=== PATIENT | female | born 1970 | race African-American/Black ===

== ENCOUNTER 2016-12-07 02:58 | Emergency (ER) | payer OTHER ==
[~2016-12-07] VITALS: Ht 165.1 cm; Wt 115.7 kg
[~2016-12-07 02:58] MED LIST: BENZ100C PO; CIPR250T30 PO; CYCL10TA2 PO; GABA-586 PO; HYDR12.58 PO; NAPR250T2 PO; POLY17PO5 PO; SULF1TAB24 PO; TRAM-29 PO
[2016-12-07] MEDS ORDERED: IV NORMAL SALINE 1000ML BAG 1,000 ML IV ONE (03:30)
[2016-12-07] MEDS ORDERED: ONDANSETRON PF 4 MG/2 ML VIAL. IV PRN (03:30)
[2016-12-07 03:46] LABS: BASO # 0.1 x10^3/uL (0.0-0.2); BASO % 1 % (0-3); EOS % 1 % (0-3); HEMATOCRIT 38.8 % (36.0-47.0); HEMOGLOBIN 12.6 g/dL (12.0-15.5); LYMPH # 2.8 x10^3/uL (1.0-4.8); LYMPH % 38 % (24-48); MEAN CORPUSCULAR HEMOGLOBIN 26 pg (25-35); MEAN CORPUSCULAR HGB CONC 33 g/dL (31-37); MEAN CORPUSCULAR VOLUME 80 fL (79-100); MONO % 9 % (0-9); NEUT % 50 % (31-73); PLATELET COUNT 316 x10^3/uL (140-400); RED BLOOD COUNT 4.85 x10^6/uL (3.50-5.40); RED CELL DISTRIBUTION WIDTH 15.8 % (11.5-14.5); WHITE BLOOD COUNT 7.4 x10^3/uL (4.0-11.0)
[2016-12-07] MEDS ORDERED: LIDO:MAALOX:DONNATAL 1:1:1 15 ML SINGLE DOSE SWSW ONE (04:00)
[2016-12-07 04:01] LABS: CALCIUM 9.3 mg/dL (8.5-10.1); CREATININE 1.1 mg/dL (0.6-1.0); POTASSIUM 3.4 mmol/L (3.5-5.1)
[2016-12-07 04:07] LABS: ALBUMIN 3.3 g/dL (3.4-5.0); ALBUMIN/GLOBULIN RATIO 0.8 (1.0-1.7); TOTAL BILIRUBIN 0.2 mg/dL (0.2-1.0); TOTAL PROTEIN 7.7 g/dL (6.4-8.2)
[2016-12-07] MEDS ORDERED: ONDA4TAB10 SL (04:11)
--- NOTE | 2016-12-07 04:12 | PHYS DOC ---
Past Medical History Past Medical History: Arthritis, Asthma, CAD, Diabetes-Type II, Diverticulitis , Hypertension Additional Past Medical Histor: SLEEP APNEA, RA IN SPINE AND BILATERAL LOWER EXTREMITIES, Ulcers Past Surgical History: Tubal ligation Additional Past Surgical Histo: L KNEE Alcohol Use: Occasionally Drug Use: None Adult General Chief Complaint Chief Complaint: NAUSEA/VOMITING/DIARRHA HPI HPI 46-year-old female presenting to the emergency department today with nausea and vomiting with watery diarrhea over the past 3 days. She describes her emesis as stomach contents. She denies bilious or bloody emesis. She has mild abdominal pain that is general and without a focus. She denies fevers or chills. Her pain is moderate intermittent nonradiating and associated with nausea with vomiting. Review of systems is negative for chest pain shortness of breath fevers chills. All other review of systems is negative unless otherwise noted in history of present illness. Review of Systems Review of Systems SEE ABOVE. Current Medications Current Medications Current Medications Medications (Trade) Dose Ordered Sig/Felipa Start Time Stop Time Status Last Admin Dose Admin Acetaminophen/ Hydrocodone Bitart (Lortab 5/325) 1 tab 1X ONCE 12/07/16 05:00 12/07/16 05:01 DC Multi-Ingredient Mouthwash/Gargle (Gi Cocktail Single Dose) 15 ml 1X ONCE 12/07/16 04:00 12/07/16 04:01 DC 12/07/16 03:48 15 ML Ondansetron HCl (Zofran) 4 mg PRN Q30MIN PRN 12/07/16 03:30 12/07/16 03:48 4 MG Sodium Chloride (Iv Sodium Chloride 0.9% 1000ml Bag) 1,000 ml @ 1,000 mls/hr 1X ONCE 12/07/16 03:30 12/07/16 04:29 DC 12/07/16 03:48 1,000 MLS/HR Allergies Allergies Allergies Coded Allergies Type Severity Reaction Last Updated Verified No Known Drug Allergies 09/14/14 No Physical Exam Physical Exam Constitutional: Well developed, well nourished, no acute distress, non-toxic appearance. HENT: Normocephalic, atraumatic, bilateral external ears normal, oropharynx moist, no oral exudates, nose normal. [] Eyes: PERRLA, EOMI, conjunctiva normal, no discharge. [] Neck: Normal range of motion, no tenderness, supple, no stridor. [] Cardiovascular:Heart rate regular rhythm, no murmur Lungs & Thorax: Bilateral breath sounds clear to auscultation [] Abdomen: Soft nontender abdomen without rebound tenderness or guarding present. Negative McBurneys point. Negative Denson sign. No ecchymosis present. Skin: Warm, dry, no erythema, no rash. [] Back: No tenderness, no CVA tenderness. Extremities: No tenderness, no cyanosis, no clubbing, ROM intact, no edema. [] Neurologic: Alert and oriented X 3, normal motor function, normal sensory function, no focal deficits noted. Psychologic: Affect normal, judgement normal, mood normal. [] Current Patient Data Vital Signs Vital Signs Date Time Temp Pulse Resp B/P Pulse Ox O2 Delivery O2 Flow Rate FiO2 12/07/16 02:58 98.4 101 19 151/97 98 Room Air 98.4 Lab Values Laboratory Tests Test 12/07/16 03:35 12/07/16 04:25 White Blood Count 7.4x10^3/uL (4.0-11.0) Red Blood Count 4.85x10^6/uL (3.50-5.40) Hemoglobin 12.6g/dL (12.0-15.5) Hematocrit 38.8% (36.0-47.0) Mean Corpuscular Volume 80fL (79-100) Mean Corpuscular Hemoglobin 26pg (25-35) Mean Corpuscular Hemoglobin Concent 33g/dL (31-37) Red Cell Distribution Width 15.8% (11.5-14.5) H Platelet Count 316x10^3/uL (140-400) Neutrophils (%) (Auto) 50% (31-73) Lymphocytes (%) (Auto) 38% (24-48) Monocytes (%) (Auto) 9% (0-9) Eosinophils (%) (Auto) 1% (0-3) Basophils (%) (Auto) 1% (0-3) Neutrophils # (Auto) 3.7x10^3uL (1.8-7.7) Lymphocytes # (Auto) 2.8x10^3/uL (1.0-4.8) Monocytes # (Auto) 0.6x10^3/uL (0.0-1.1) Eosinophils # (Auto) 0.1x10^3/uL (0.0-0.7) Basophils # (Auto) 0.1x10^3/uL (0.0-0.2) POC Urine HCG, Qualitative Hcg negative (Negative) Sodium Level 145mmol/L (136-145) Potassium Level 3.4mmol/L (3.5-5.1) L Chloride Level 108mmol/L (98-107) H Carbon Dioxide Level 25mmol/L (21-32) Anion Gap 12 (6-14) Blood Urea Nitrogen 10mg/dL (7-20) Creatinine 1.1mg/dL (0.6-1.0) H Estimated GFR (Cockcroft-Gault) 65.0 BUN/Creatinine Ratio 9 (6-20) Glucose Level 115mg/dL (70-99) H Calcium Level 9.3mg/dL (8.5-10.1) Total Bilirubin 0.2mg/dL (0.2-1.0) Aspartate Amino Transferase (AST) 18U/L (15-37) Alanine Aminotransferase (ALT) 22U/L (14-59) Alkaline Phosphatase 75U/L (46-116) Total Protein 7.7g/dL (6.4-8.2) Albumin 3.3g/dL (3.4-5.0) L Albumin/Globulin Ratio 0.8 (1.0-1.7) L Lipase 106U/L (73-393) Urine Collection Type Unknown Urine Color Yellow Urine Clarity Cloudy Urine pH 5.5 Urine Specific [place] >=1.030 Urine Protein Negativemg/dL (NEG-TRACE) Urine Glucose (UA) Negativemg/dL (NEG) Urine Ketones (Stick) Negativemg/dL (NEG) Urine Blood Small (NEG) Urine Nitrite Negative (NEG) Urine Bilirubin Negative (NEG) Urine Urobilinogen Dipstick 0.2mg/dL (0.2 mg/dL) Urine Leukocyte Esterase Moderate (NEG) Urine RBC 6-10/HPF (0-2) Urine WBC 20-40/HPF (0-4) Urine Squamous Epithelial Cells Many/LPF Urine Bacteria Few/HPF (0-FEW) Urine Trichomonas Present Laboratory Tests 12/07/16 03:35 Laboratory Tests 3/18/17 03:35 EKG EKG [] Radiology/Procedures Radiology/Procedures [] Course & Med Decision Making Course & Med Decision Making Pertinent Labs and Imaging studies reviewed. (See chart for details) [] 46-year-old female presenting to the emergency department today with nausea and vomiting. Vital signs afebrile with mild tachycardia. Otherwise mildly hypertensive. Pertinent physical exam findings show a nontender nondistended abdomen. The patient was given IV fluids nausea and pain medication. Blood work was obtained which was unremarkable. On reexamination the patient's symptoms had improved significantly. She was feeling better. I examined the abdomen again and again was nontender. Nontender appendix and nontender gallbladder. Patient was subsequent discharged home with nausea and pain medication to follow -up with PCP over the next 2-3 days. Urinary tract infection present. Antibiotics given. Dragon Disclaimer Dragon Disclaimer This electronic medical record was generated, in whole or in part, using a voice recognition dictation system. Departure Departure Impression: Primary Impression: Nausea and vomiting Additional Impressions: Watery diarrhea Urinary tract infection Disposition: HOME, SELF-CARE Condition: STABLE Referrals: UNKNOWN PCP NAME (PCP) JES MCKEON MD Patient Instructions: Nausea and Vomiting Additional Instructions: Thank you for allowing us to participate in your care today. Followup with your primary care physician in 3 days if your symptoms do not improve. If you do not have a primary care provider you can ask for a list of our primary care providers. Return to the emergency department you have any new or concerning findings. This should be evaluated by the primary care physician and any necessary consulting services for continued management within a few days after discharge. Return to emergency room if you have any new or concerning symptoms including but not limited to fever, chills, nausea, vomiting, intractable pain, any new rashes, chest pain, shortness of air, uncontrolled bleeding, difficulty breathing, and/or vision loss. Scripts Nitrofurantoin Monohyd/M-Cryst (Macrobid 100 Mg Capsule)100 Mg Capsule1 Cap PO BID #10 CAP Prov:KG HERNANDEZ MD 12/07/16 Ondansetron (Zofran Odt)4 Mg Tab.rapdis1 Tab SL PRN Q8HRS PRN NAUSEA #6 TAB Prov:KG HERNANDEZ MD 12/07/16 Problem Qualifiers KG HERNANDEZ MD Dec 07, 2016 04:12
[2016-12-07 05:00] VITALS: BP 148/67
[2016-12-07 05:00] LABS: BILIRUBIN,URINE NEGATIVE (NEG); GLUCOSE,URINE NEGATIVE (NEG); NITRITE,URINE NEGATIVE (NEG); PH,URINE 5.5; PROTEIN,URINE NEGATIVE (NEG-TRACE); UROBILINOGEN,URINE 0.2 mg/dL (0.2 mg/dL)
[2016-12-07] MEDS ORDERED: HYDROCODONE/APAP 5/325MG TABLET. PO ONE (05:00)
[2016-12-07 05:09] LABS: BACTERIA,URINE FEW /HPF (0-FEW); SQUAMOUS EPITHELIAL CELL,UR MANY /LPF; WBC,URINE 20-40 /HPF (0-4)
[2016-12-07 05:10] LABS: TRICHOMONAS,URINE PRESENT
[2016-12-07] MEDS ORDERED: NITR100C62 PO (05:16)
== END 2016-12-07 05:36 | disposition home or self-care (01) ==
LOC: ER 02:58
DX: R11.2 Nausea with vomiting, unspecified (principal); R19.7 Diarrhea, unspecified; N39.0 Urinary tract infection, site not specified; E11.9 Type 2 diabetes mellitus without complications; I25.10 Atherosclerotic heart disease of native coronary artery without angina pectoris; I10 Essential (primary) hypertension; J45.909 Unspecified asthma, uncomplicated; R00.0 Tachycardia, unspecified; M19.90 Unspecified osteoarthritis, unspecified site; G47.30 Sleep apnea, unspecified
CPT/HCPCS: 36415; 80053; 81001; 81025; 83690; 85027; 87086; 96361; 96374; 99285; J2405; J7030

== ENCOUNTER 2017-01-06 17:44 | Emergency (ER) | payer OTHER ==
[~2017-01-06] VITALS: Ht 165.1 cm; Wt 120.2 kg
[~2017-01-06 17:44] MED LIST changes: +NITR100C62 PO; +ONDA4TAB10 SL
[2017-01-06 18:32] VITALS: BP 160/103
--- NOTE | 2017-01-06 19:18 | PHYS DOC ---
Past Medical History Past Medical History: Arthritis, Asthma, CAD, Diabetes-Type II, Diverticulitis , Hypertension Additional Past Medical Histor: SLEEP APNEA, RA IN SPINE AND BILATERAL LOWER EXTREMITIES, Ulcers Past Surgical History: Tubal ligation Additional Past Surgical Histo: L KNEE Additional Information: 7 cigarettes daily Alcohol Use: Occasionally Drug Use: None Adult General Chief Complaint Chief Complaint: KNEE INJURY HPI HPI Patient is a 46 year old female who presents with right knee pain starting yesterday. She states that her knee popped while she was walking down the steps. The pain became worse today after her son jumped on the knee. It began to pop again if she was walking down the steps to come to the emergency department tonight. Patient has a history of rheumatoid arthritis. She takes Percocet 7.5 mg and gabapentin at home for her pain. She is currently out of her Percocet. She sees a PCP at [facility]. Review of Systems Review of Systems Constitutional: Denies fever or chills. [] Eyes: Denies change in visual acuity, redness, or eye pain. [] HENT: Denies ear pain, nasal congestion or sore throat. [] Respiratory: Denies cough or shortness of breath. [] Cardiovascular: Denies chest pain, palpitations or edema. [] GI: Denies abdominal pain, nausea, vomiting, bloody stools or diarrhea. [] : Denies dysuria, hematuria or urinary frequency. [] Musculoskeletal: Denies back pain. Reports right knee pain. Integument: Denies rash or skin lesions. [] Neurologic: Denies headache, focal weakness or sensory changes. [] Endocrine: Denies polyuria or polydipsia. [] Psych: Denies anxiety or depression. [] All systems reviewed and negative unless otherwise stated in the HPI. Allergies Allergies Allergies Coded Allergies Type Severity Reaction Last Updated Verified No Known Drug Allergies 09/14/14 No Physical Exam Physical Exam Constitutional: Well developed, well nourished, no acute distress, non-toxic appearance. [] HENT: Normocephalic, atraumatic, oropharynx moist. [] Eyes: PERRLA, EOMI, conjunctiva normal, no discharge. [] Skin: Warm, dry, no erythema, no rash. [] Extremities: Medial right knee tenderness, ROM decreased due to pain, minimal edema. Distal pulses equal bilaterally. Light touch sensation intact distally. Neurologic: Alert and oriented X 3, normal motor function, normal sensory function, no focal deficits noted. [] Psychologic: Affect normal, judgement normal, mood normal. [] Current Patient Data Vital Signs Vital Signs Date Time Temp Pulse Resp B/P Pulse Ox O2 Delivery O2 Flow Rate FiO2 01/06/17 18:32 100.0 80 16 100 Room Air 100.0 EKG EKG [] Radiology/Procedures Radiology/Procedures 4 view X-ray of the right knee reviewed and interpreted by myself with Dr. Bhakta. There are no acute fractures or dislocations. There is arthritis of the knee, particularly in the medial compartment. Course & Med Decision Making Course & Med Decision Making Pertinent Labs and Imaging studies reviewed. (See chart for details) The patient is provided with an Jeromy wrap prior to discharge. She is given contact information for orthopedics for follow-up. Return precautions were discussed. She verbalizes understanding and agrees with plan. Dragon Disclaimer Dragon Disclaimer This electronic medical record was generated, in whole or in part, using a voice recognition dictation system. Departure Departure Impression: Primary Impression: Right knee pain Disposition: HOME, SELF-CARE Condition: STABLE Referrals: ANASTASIIA DEL CID II, MD Patient Instructions: Knee Pain, [id number], Knee Wraps (Elastic Bandage) and RICE Additional Instructions: There were no broken bones or dislocations seen on your x-ray. You do have arthritis in the knee. Please take the prescribed medications as instructed. Do not drive or operate heavy machinery while taking narcotic medications. Please follow-up with the orthopedic doctor listed below for your knee pain. Return to the emergency department if you have any new or concerning symptoms. Scripts Oxycodone/Apap 7.5-325 (Percocet 7.5-325 Mg Tablet)1 Each Tablet1 Tab PO PRN Q6HRS PRN PAIN #15 TAB Ref 0 Prov:JUNIOR JAIN 01/06/17 Naproxen (Naprosyn)500 Mg Tablet1 Tab PO BID #20 TAB Prov:JUNIOR JAIN 01/06/17 Problem Qualifiers Primary Impression: Right knee pain Chronicity: chronic Qualified Code: M25.561 - Pain in right knee JUNIOR JAIN Jan 06, 2017 19:18
[2017-01-06] MEDS ORDERED: NAPR500T PO (19:48)
[2017-01-06] MEDS ORDERED: OXYC-244 PO (19:48)
--- NOTE | 2017-01-07 09:51 | RAD ---
Right knee, 3 views, 01/06/2017: History: Knee popping, pain There is moderate spurring at the knee joint and at the patellofemoral articulation. There is subchondral sclerosis and cyst formation. No acute fracture or dislocation is identified. IMPRESSION: 1. Moderately severe hypertrophic degenerative change. 2. No acute bony abnormality is detected.
== END 2017-01-06 20:01 | disposition home or self-care (01) ==
LOC: ER 17:44
DX: M25.561 Pain in right knee (principal); E11.9 Type 2 diabetes mellitus without complications; G47.30 Sleep apnea, unspecified; I10 Essential (primary) hypertension; I25.10 Atherosclerotic heart disease of native coronary artery without angina pectoris; J45.909 Unspecified asthma, uncomplicated; M06.9 Rheumatoid arthritis, unspecified; F17.210 Nicotine dependence, cigarettes, uncomplicated; Z98.51 Tubal ligation status
CPT/HCPCS: 73562; 99284

== ENCOUNTER 2017-01-12 17:01 | Emergency (ER) | payer OTHER ==
[~2017-01-12] VITALS: Ht 165.1 cm; Wt 120.2 kg
[~2017-01-12 17:01] MED LIST changes: +NAPR500T PO; +OXYC-244 PO
[2017-01-12 17:54] VITALS: BP 197/104
[2017-01-12] MEDS ORDERED: HYDR-971 PO (18:03)
[2017-01-12] MEDS ORDERED: AMOX875T PO (18:03)
--- NOTE | 2017-01-12 18:03 | PHYS DOC ---
Past Medical History Past Medical History: Arthritis, Asthma, CAD, Diabetes-Type II, Diverticulitis , Hypertension Additional Past Medical Histor: SLEEP APNEA, RA IN SPINE AND BILATERAL LOWER EXTREMITIES, Ulcers Past Surgical History: Tubal ligation Additional Past Surgical Histo: L KNEE Alcohol Use: Occasionally Drug Use: None Adult General Chief Complaint Chief Complaint: TOOTH ACHE OR PAIN HPI HPI Patient is a 46 year old female with history of arthritis asthma hypertension diabetes type 2 who presents today with left lower gum dental pain that began 3 days ago. Patient denies any fever or trismus. She states she will look for dentist as soon as possible. Review of Systems Review of Systems Constitutional: Denies fever or chills [] Eyes: Denies change in visual acuity, redness, or eye pain [] HENT: Left lower gum dental pain Musculoskeletal: Denies back pain or joint pain [] Integument: Denies rash or skin lesions [] Neurologic: Denies headache, focal weakness or sensory changes [] Endocrine: Denies polyuria or polydipsia [] Allergies Allergies Allergies Coded Allergies Type Severity Reaction Last Updated Verified No Known Drug Allergies 09/14/14 No Physical Exam Physical Exam Constitutional: Well developed, well nourished, no acute distress, non-toxic appearance. [] HENT: Normocephalic, atraumatic, bilateral external ears normal, oropharynx moist, no oral exudates, nose normal. [] Tooth #20 and 21 with small amount of dental caries. No gum redness. Skin: Warm, dry, no erythema, no rash. [] Back: No tenderness, no CVA tenderness. [] Extremities: No tenderness, no cyanosis, no clubbing, ROM intact, no edema. [] Neurologic: Alert and oriented X 3, normal motor function, normal sensory function, no focal deficits noted. [] Psychologic: Affect normal, judgement normal, mood normal. [] EKG EKG [] Radiology/Procedures Radiology/Procedures [] Course & Med Decision Making Course & Med Decision Making Pertinent Labs and Imaging studies reviewed. (See chart for details) Patient has dental caries. Discharged with amoxicillin for 10 days. Discharged with hydrocodone as needed for pain. Follow-up with her dentist in the course of the next 7-14 days. Dragon Disclaimer Dragon Disclaimer This electronic medical record was generated, in whole or in part, using a voice recognition dictation system. Departure Departure Impression: Primary Impression: Pain, dental Additional Impression: Dental caries Disposition: 01 HOME, SELF-CARE Condition: STABLE Referrals: UNKNOWN PCP NAME (PCP) Follow-up with your dentist as soon as possible Patient Instructions: Dental Caries Additional Instructions: You were seen for dental caries and pain. Please take the prescribed antibiotics as ordered. Follow-up with your dentist in the next 7-14 days. Come back to the ED symptoms worsen. Scripts Amoxicillin 875 Mg Tablet1 Tab PO BID #20 TAB Prov:LUDA PADGETT APRN 01/12/17 Hydrocodone/Apap 5-325 (Hodgen 5-325 Tablet)1 Each Tablet1-2 Tab PO Q4-6HRS #12 TAB Must fill antibiotics before pain medicines. Prov:LUDA PADGETT APRN 01/12/17 Problem Qualifiers LUDA PADGETT APRN Jan 12, 2017 18:03
== END 2017-01-12 18:29 | disposition home or self-care (01) ==
LOC: ER 17:01
DX: K08.89 Other specified disorders of teeth and supporting structures (principal); K02.9 Dental caries, unspecified; M19.90 Unspecified osteoarthritis, unspecified site; J45.909 Unspecified asthma, uncomplicated; I25.10 Atherosclerotic heart disease of native coronary artery without angina pectoris; E11.9 Type 2 diabetes mellitus without complications; I10 Essential (primary) hypertension
CPT/HCPCS: 99283

== ENCOUNTER 2017-02-12 20:31 | Emergency (ER) | payer OTHER ==
[~2017-02-12] VITALS: Ht 165.1 cm; Wt 120.2 kg
[~2017-02-12 20:31] MED LIST changes: +AMOX875T PO; +HYDR-971 PO; +POLY17PO29 PO; -POLY17PO5 PO
[2017-02-12 20:51] VITALS: BP 183/116
--- NOTE | 2017-02-12 21:13 | PHYS DOC ---
Past Medical History Past Medical History: Arthritis, Asthma, CAD, Diabetes-Type II, Diverticulitis , Hypertension Additional Past Medical Histor: SLEEP APNEA, RA IN SPINE AND BILATERAL LOWER EXTREMITIES, Ulcers Past Surgical History: Tubal ligation Additional Past Surgical Histo: L KNEE Smoking: Cigarettes Alcohol Use: Occasionally Drug Use: None Adult General Chief Complaint Chief Complaint: FEVER HPI HPI Patient is a 46 year old female who presents with cough and cold symptoms since Friday. She has ear pain and fullness. Runny nose (clear) and non productive cough. Aches "all over." Vomiting but no diarrhea; no rash. No recent travel. She does smoke tobacco; has hypertension. Denies taking any OTC cold medications. Review of Systems Review of Systems Constitutional: Denies fever or chills Eyes: Denies change in visual acuity, redness, or eye pain HENT: see HPI Respiratory: Cough but Denies shortness of breath Cardiovascular: No chest pain GI: Denies abdominal pain, occasional nausea and vomiting, No bloody stools or diarrhea : Denies dysuria or hematuria Musculoskeletal: chronic back pain diffuse joint pain and aches Integument: Denies rash or skin lesions Neurologic: Some headache, No focal weakness or sensory changes Allergies Allergies Allergies Coded Allergies Type Severity Reaction Last Updated Verified No Known Drug Allergies 09/14/14 No Physical Exam Physical Exam Constitutional: Well developed, well nourished, no acute distress, non-toxic appearance. HENT: Normocephalic, atraumatic, bilateral external ears normal, TM dull but no erythema bilaterally. oropharynx moist, no oral exudates, nose normal. Eyes: PERRLA, EOMI, conjunctiva normal, no discharge. Neck: Normal range of motion, no tenderness, supple, no stridor. Cardiovascular:Heart rate regular rhythm, no murmur Lungs & Thorax: Bilateral breath sounds clear to auscultation Abdomen: Bowel sounds normal, soft, no tenderness, no masses, no pulsatile masses. Skin: Warm, dry, no erythema, no rash. Back: No tenderness, no CVA tenderness. Extremities: No tenderness, no cyanosis, no clubbing, ROM intact, no edema. Neurologic: Alert and oriented X 3, normal motor function, normal sensory function, no focal deficits noted. Psychologic: Affect normal, judgement normal, mood normal. Current Patient Data Vital Signs Vital Signs Date Time Temp Pulse Resp B/P (MAP) Pulse Ox O2 Delivery O2 Flow Rate FiO2 02/12/17 20:51 99.6 92 20 183/116 (138) 99 Room Air 99.6 EKG EKG [] Course & Med Decision Making Course & Med Decision Making Ddx: allergic rhinitis and sinusitis; viral syndrome; bronchitis Patient with non toxic presentation. KTRACS: reveals consistent multiple narcotic pain medications filled monthly. For January; 01/23/17 oxycodone (#15); Hydrocodone (#15); 02/05/17 Oxycodone 7.5 mg (#90). Will have her use OTC Coricidin HBP for cold symptoms; medrol dose antia and tessalon pearles. She does not meet findings for antibiotics at this time. If symptoms change or worsen she will need re-evaluation Dragon Disclaimer Dragon Disclaimer This electronic medical record was generated, in whole or in part, using a voice recognition dictation system. Departure Departure Impression: Primary Impression: Upper respiratory infection Additional Impression: Viral syndrome Disposition: 01 HOME, SELF-CARE Condition: GOOD Referrals: UNKNOWN PCP NAME (PCP) Patient Instructions: Acute Bronchitis, Hypertension, Viral Syndrome Scripts Benzonatate (TESSALON PERLE) 100 Mg Capsule 1 CAP PO TID, #21 CAP Prov: BARTOLO GONZALEZ MD 02/12/17 Methylprednisolone (MEDROL) 4 Mg Tab.ds.pk 1 PKG PO UD, #1 PKG Prov: BARTOLO GONZALEZ MD 02/12/17 Problem Qualifiers BARTOLO GONZALEZ MD February 12, 2017 21:13
[2017-02-12] MEDS ORDERED: METH4TAB2 PO (21:26)
[2017-02-12] MEDS ORDERED: BENZ100C PO (21:26)
== END 2017-02-12 22:04 | disposition home or self-care (01) ==
LOC: ER 20:31
DX: J06.9 Acute upper respiratory infection, unspecified (principal); B34.9 Viral infection, unspecified; J45.909 Unspecified asthma, uncomplicated; I25.10 Atherosclerotic heart disease of native coronary artery without angina pectoris; E11.9 Type 2 diabetes mellitus without complications; I10 Essential (primary) hypertension; G47.30 Sleep apnea, unspecified; F17.210 Nicotine dependence, cigarettes, uncomplicated; M06.89 Other specified rheumatoid arthritis, multiple sites
CPT/HCPCS: 99283

== ENCOUNTER 2017-12-09 17:41 | Emergency (ER) | payer OTHER ==
[2017-12-09 17:57] LABS: URINE HCG POC HCG NEGATIVE (Negative)
[2017-12-09 18:22] LABS: BILIRUBIN,URINE NEGATIVE (NEG); CLARITY,URINE CLEAR; COLOR,URINE YELLOW; GLUCOSE,URINE NEGATIVE (NEG); NITRITE,URINE NEGATIVE (NEG); PH,URINE 6.5; PROTEIN,URINE NEGATIVE (NEG-TRACE)
[2017-12-09] MEDS: IV NORMAL SALINE 1000ML BAG 1,000 ML IV (18:24)
[2017-12-09] MEDS: fentaNYL PF VIAL 100 MCG/2 ML VIAL IV ×4 (18:24→20:05)
[2017-12-09 18:25] LABS: ADD MAN DIFF? NO
[2017-12-09] MEDS: FAMOTIDINE 20 MG/2 ML VIAL IVP (18:25)
[2017-12-09] MEDS: ONDANSETRON PF 4 MG/2 ML VIAL. IV (18:25)
[2017-12-09 18:29] LABS: BASO # 0.1 x10^3/uL (0.0-0.2); BASO % 1 % (0-3); EOS # 0.1 x10^3/uL (0.0-0.7); EOS % 2 % (0-3); HEMATOCRIT 37.2 % (36.0-47.0); HEMOGLOBIN 12.4 g/dL (12.0-15.5); LYMPH % 45 % (24-48); MEAN CORPUSCULAR HEMOGLOBIN 27 pg (25-35); MEAN CORPUSCULAR HGB CONC 33 g/dL (31-37); MEAN CORPUSCULAR VOLUME 80 fL (79-100); MONO # 0.6 x10^3/uL (0.0-1.1); MONO % 9 % (0-9); NEUT # 2.9 x10^3uL (1.8-7.7); NEUT % 43 % (31-73); PLATELET COUNT 338 x10^3/uL (140-400); RED BLOOD COUNT 4.65 x10^6/uL (3.50-5.40); WHITE BLOOD COUNT 6.7 x10^3/uL (4.0-11.0)
[2017-12-09 18:37] LABS: BACTERIA,URINE MODERATE /HPF (0-FEW); RBC,URINE 0 /HPF (0-2); SQUAMOUS EPITHELIAL CELL,UR MOD /LPF; WBC,URINE RARE /HPF (0-4)
[2017-12-09] MEDS: IOHEXOL 300 MG/ML 100ML VIAL. IV (19:15)
[2017-12-09] MEDS ORDERED: CONTRAST GIVEN MC (19:15)
[2017-12-09 19:30] LABS: ANION GAP 10 (6-14); BLOOD UREA NITROGEN 12 mg/dL (7-20); BUN/CREATININE RATIO 13 (6-20); CALCIUM 8.5 mg/dL (8.5-10.1); CARBON DIOXIDE 24 mmol/L (21-32); CHLORIDE 105 mmol/L (98-107); CREATININE 0.9 mg/dL (0.6-1.0); GFR 81.6; GLUCOSE 95 mg/dL (70-99); POTASSIUM 4.5 mmol/L (3.5-5.1); SODIUM 139 mmol/L (136-145)
[2017-12-09 19:36] LABS: ALBUMIN 3.1 g/dL (3.4-5.0); ALBUMIN/GLOBULIN RATIO 0.7 (1.0-1.7); ALK PHOS 72 U/L (46-116); ALT (SGPT) 16 U/L (14-59); AST (SGOT) 14 U/L (15-37); LIPASE 119 U/L (73-393); TOTAL BILIRUBIN 0.1 mg/dL (0.2-1.0); TOTAL PROTEIN 7.4 g/dL (6.4-8.2)
== END 2017-12-09 21:37 | disposition home or self-care (01) ==
LOC: ER 17:41
DX: R10.84 Generalized abdominal pain (principal); M54.5 Low back pain; R50.9 Fever, unspecified; J45.909 Unspecified asthma, uncomplicated; I25.10 Atherosclerotic heart disease of native coronary artery without angina pectoris; I10 Essential (primary) hypertension; E11.9 Type 2 diabetes mellitus without complications; M06.9 Rheumatoid arthritis, unspecified; Z98.51 Tubal ligation status
CPT/HCPCS: 36415; 74177; 80053; 81001; 81025; 83690; 85025; 87086; 93005; 96361; 96374; 96375; 96376; 99285-25; J2405; J3010; J7030; Q9967; S0028

== ENCOUNTER 2018-06-11 22:51 | Emergency (ER) | payer OTHER ==
[2017-12-09 20:30] VITALS: BP 176/75
[~2018-06-11 22:51] MED LIST changes: +CIPR500T94 PO; +METH4TAB2 PO; +METR500T PO; +NAPR-683 PO; -NAPR250T2 PO; +NAPR250T6 PO; -NAPR500T PO; -OXYC-244 PO; +OXYC-327 PO; -TRAM-29 PO; +TRAM-48 PO
== END 2018-06-11 23:10 | disposition left against medical advice (07) ==
LOC: ER 22:51
DX: S99.912A Unspecified injury of left ankle, initial encounter (principal); Z53.21 Procedure and treatment not carried out due to patient leaving prior to being seen by health care provider; X58.XXXA Exposure to other specified factors, initial encounter; Y93.89 Activity, other specified; Y92.89 Other specified places as the place of occurrence of the external cause; Y99.8 Other external cause status

== ENCOUNTER 2018-09-19 20:26 | Emergency (ER) | payer OTHER ==
[~2018-09-19] VITALS: Ht 165.1 cm; Wt 120.2 kg
[~2018-09-19 20:26] MED LIST changes: -GABA-586 PO; +GABA300C18 PO; +HYDR-3164 PO; -HYDR-971 PO; -OXYC-327 PO; +OXYC1TAB19 PO
[2018-09-19 20:36] VITALS: BP 171/99
[2018-09-19] MEDS ORDERED: CYCL10TA2 PO (20:44)
[2018-09-19] MEDS ORDERED: OXYC1TAB19 PO (20:44)
--- NOTE | 2018-09-19 20:44 | PHYS DOC ---
Past Medical History Past Medical History: Arthritis, Asthma, CAD, Diabetes-Type II, Diverticulitis , Hypertension Additional Past Medical Histor: SLEEP APNEA, RA IN SPINE AND BILATERAL LOWER EXTREMITIES, Ulcers Past Surgical History: Tubal ligation Additional Past Surgical Histo: L KNEE Alcohol Use: Occasionally Drug Use: None Adult General Chief Complaint Chief Complaint: BACK PAIN - NO INJURY HPI HPI Patient is a 48 year old female with history of hypertension, diabetes type 2, asthma, arthritis, who presents today complaining of 10 out of 10 bilateral low back pain radiating to her right knee that is chronic in nature but got worse this morning, patient denies any known injury. Denies any loss of bowel bladder function. She states she normally gets oxycodone as needed for her pain but her PCP is out of town. Review of Systems Review of Systems Constitutional: Denies fever or chills [] GI: Denies abdominal pain, nausea, vomiting, bloody stools or diarrhea [] : Denies dysuria or hematuria [] Musculoskeletal: Reports exacerbation of chronic low back pain Integument: Denies rash or skin lesions [] Neurologic: Denies headache, focal weakness or sensory changes [] All other systems were reviewed and found to be within normal limits, except as documented in this note. Allergies Allergies Allergies Coded Allergies Type Severity Reaction Last Updated Verified No Known Drug Allergies 09/14/14 No Physical Exam Physical Exam Constitutional: Well developed, well nourished, no acute distress, non-toxic appearance. [] Abdomen: Bowel sounds normal, soft, no tenderness, no masses, no pulsatile masses. [] Skin: Warm, dry, no erythema, no rash. [] Back: Overweight patient. Diffuse paraspinal muscle tenderness bilateral lumbar spine, no midline tenderness, no CVA tenderness. [] Extremities: No tenderness, no cyanosis, no clubbing, ROM intact, no edema. [] Neurologic: Alert and oriented X 3, normal motor function, normal sensory function, no focal deficits noted. [] Psychologic: Affect normal, judgement normal, mood normal. [] EKG EKG [] Radiology/Procedures Radiology/Procedures [] Course & Med Decision Making Course & Med Decision Making Pertinent Labs and Imaging studies reviewed. (See chart for details) This is a 48-year-old female patient presented to the ED today with exacerbation of chronic low back pain, no known injury. Patient will be discharged with pain medicine. Follow-up with her PCP in the course of this coming week. Faviola Disclaimer Faviola Disclaimer This electronic medical record was generated, in whole or in part, using a voice recognition dictation system. Departure Departure Impression: Primary Impression: Back pain Additional Impression: Sciatica Disposition: 01 HOME, SELF-CARE Condition: STABLE Referrals: UNKNOWN PCP NAME (PCP) Follow-up with your doctor in the course of next week Patient Instructions: Back Pain, Adult, Sciatica, [id number] Additional Instructions: You were evaluated in the emergency room for exacerbation of chronic low back pain. Take the prescribed medications as ordered. Follow-up with your doctor in the course of next week. Scripts Cyclobenzaprine Hcl (CYCLOBENZAPRINE HCL) 10 Mg Tablet 1 TAB PO TID, #30 TAB Prov: LUDA PADGETT APRN 09/19/18 Oxycodone/Apap 7.5-325 (PERCOCET 7.5-325 MG TABLET ) 1 Each Tablet 1 TAB PO PRN Q6HRS PRN for PAIN, #14 TAB 0 Refills Prov: LUDA PADGETT APRN 09/19/18 Problem Qualifiers Primary Impression: Back pain Back pain location: low back pain Chronicity: chronic Back pain laterality : bilateral Sciatica presence: with sciatica Sciatica laterality: sciatica of right side Qualified Codes: M54.41 - Lumbago with sciatica, right side; G89.29 - Other chronic pain Additional Impression: Sciatica Laterality: right Qualified Codes: M54.31 - Sciatica, right side LUDA PADGETT APRN Sep 19, 2018 20:44
== END 2018-09-19 20:56 | disposition home or self-care (01) ==
LOC: ER 20:26
DX: M54.41 Lumbago with sciatica, right side (principal); M54.42 Lumbago with sciatica, left side; G89.29 Other chronic pain; I25.10 Atherosclerotic heart disease of native coronary artery without angina pectoris; J45.909 Unspecified asthma, uncomplicated; I10 Essential (primary) hypertension; E11.9 Type 2 diabetes mellitus without complications; Z98.51 Tubal ligation status
CPT/HCPCS: 99283

== ENCOUNTER 2018-10-04 16:03 | Emergency (ER) | payer MEDICAID ==
[~2018-10-04] VITALS: Ht 170.2 cm; Wt 120.2 kg
[2018-10-04 16:23] LABS: BILIRUBIN,URINE NEGATIVE (NEG); CLARITY,URINE CLEAR; COLOR,URINE YELLOW; NITRITE,URINE NEGATIVE (NEG); PH,URINE 5.5; PROTEIN,URINE NEGATIVE (NEG-TRACE); UROBILINOGEN,URINE 0.2 mg/dL (0.2 mg/dL)
[2018-10-04 16:35] LABS: BACTERIA,URINE MANY /HPF (0-FEW); RBC,URINE RARE /HPF (0-2); SQUAMOUS EPITHELIAL CELL,UR MANY /LPF; WBC,URINE OCC /HPF (0-4)
[2018-10-04] MEDS ORDERED: MORPHINE SULFATE 10 MG/ML VIAL. IV ONE (16:45)
[2018-10-04] MEDS ORDERED: KETOROLAC 30 MG/ML VIAL. IV ONE (16:45)
[2018-10-04 16:53] LABS: BASO % 1 % (0-3); EOS # 0.1 x10^3/uL (0.0-0.7); EOS % 2 % (0-3); HEMATOCRIT 39.1 % (36.0-47.0); HEMOGLOBIN 12.9 g/dL (12.0-15.5); LYMPH # 3.1 x10^3/uL (1.0-4.8); LYMPH % 47 % (24-48); MEAN CORPUSCULAR HEMOGLOBIN 26 pg (25-35); MEAN CORPUSCULAR HGB CONC 33 g/dL (31-37); MEAN CORPUSCULAR VOLUME 79 fL (79-100); MONO # 0.4 x10^3/uL (0.0-1.1); MONO % 6 % (0-9); NEUT # 2.9 x10^3uL (1.8-7.7); NEUT % 44 % (31-73); PLATELET COUNT 342 x10^3/uL (140-400); RED BLOOD COUNT 4.96 x10^6/uL (3.50-5.40); WHITE BLOOD COUNT 6.6 x10^3/uL (4.0-11.0)
--- NOTE | 2018-10-04 16:55 | PHYS DOC ---
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 Patient states her sciatic nerve pain is also acting up. Patient denies any known injury. Denies any nausea vomiting. Denies any diarrhea. Patient denies any urgency frequency or dysuria. She states she has been taking oxycodone 5/325 with no relief. She states she is supposed to be on oxycodone 7.5/325 mg. Review of Systems Review of Systems Constitutional: Denies fever or chills [] Eyes: Denies change in visual acuity, redness, or eye pain [] HENT: Denies nasal congestion or sore throat [] Respiratory: Denies cough or shortness of breath [] Cardiovascular: No additional information not addressed in HPI [] GI: Denies abdominal pain, nausea, vomiting, bloody stools or diarrhea [] : Reports left flank pain. Denies dysuria or hematuria [] Musculoskeletal: Denies back pain or joint pain [] Integument: Denies rash or skin lesions [] Neurologic: Denies headache, focal weakness or sensory changes [] All other systems were reviewed and found to be within normal limits, except as documented in this note. Current Medications Current Medications Current Medications Medications (Trade) Dose Ordered Sig/[facility] Start Time Stop Time Status Last Admin Dose Admin Ketorolac Tromethamine (Toradol 30mg Vial) 30 mg 1X ONCE 10/04/18 16:45 10/04/18 16:47 DC 10/04/18 16:45 30 MG Morphine Sulfate (Morphine Sulfate) 5 mg 1X ONCE 10/04/18 16:45 10/04/18 16:47 DC Allergies Allergies Allergies Coded Allergies Type Severity Reaction Last Updated Verified No Known Drug Allergies 09/14/14 No Physical Exam Physical Exam Constitutional: Well developed, well nourished, no acute distress, non-toxic appearance. [] HENT: Normocephalic, atraumatic, bilateral external ears normal, oropharynx moist, no oral exudates, nose normal. [] Eyes: PERRLA, EOMI, conjunctiva normal, no discharge. [] Neck: Normal range of motion, no tenderness, supple, no stridor. [] Cardiovascular:Heart rate regular rhythm, no murmur [] Lungs & Thorax: Bilateral breath sounds clear to auscultation [] Abdomen: Rounded abdomen. Bowel sounds normal, soft, no tenderness, no masses, no pulsatile masses. [] Skin: Warm, dry, no erythema, no rash. [] Back: Diffuse paraspinal muscle tenderness to bilateral thoracic and lumbar spine, no midline thoracic or lumbar spine tenderness, no CVA tenderness. [] Extremities: No tenderness, no cyanosis, no clubbing, ROM intact, no edema. [] Neurologic: Alert and oriented X 3, normal motor function, normal sensory function, no focal deficits noted. [] Psychologic: Affect normal, judgement normal, mood normal. [] Current Patient Data Vital Signs Vital Signs Date Time Temp Pulse Resp B/P (MAP) Pulse Ox O2 Delivery O2 Flow Rate FiO2 10/04/18 16:52 97.3 100 16 148/100 (116) 99 Room Air 97.3 Lab Values Laboratory Tests Test 10/04/18 16:00 10/04/18 16:16 10/04/18 16:23 Urine Collection Type Unknown Urine Color Yellow Urine Clarity Clear Urine pH 5.5 Urine Specific [place] 1.015 Urine Protein Negative mg/dL (NEG-TRACE) Urine Glucose (UA) Negative mg/dL (NEG) Urine Ketones (Stick) Negative mg/dL (NEG) Urine Blood Trace (NEG) Urine Nitrite Negative (NEG) Urine Bilirubin Negative (NEG) Urine Urobilinogen Dipstick 0.2 mg/dL (0.2 mg/dL) Urine Leukocyte Esterase Negative (NEG) Urine RBC Rare /HPF (0-2) Urine WBC Occ /HPF (0-4) Urine Squamous Epithelial Cells Many /LPF Urine Bacteria Many /HPF (0-FEW) Urine Mucus Mod /LPF Urine Opiates Screen Pos (NEG) Urine Methadone Screen Neg (NEG) Urine Barbiturates Neg (NEG) Urine Phencyclidine Screen Neg (NEG) Urine Amphetamine/Methamphetamine Neg (NEG) Urine Benzodiazepines Screen Neg (NEG) Urine Cocaine Screen Neg (NEG) Urine Cannabinoids Screen Neg (NEG) Urine Ethyl Alcohol Neg (NEG) POC Urine HCG, Qualitative Hcg negative (Negative) White Blood Count 6.6 x10^3/uL (4.0-11.0) Red Blood Count 4.96 x10^6/uL (3.50-5.40) Hemoglobin 12.9 g/dL (12.0-15.5) Hematocrit 39.1 % (36.0-47.0) Mean Corpuscular Volume 79 fL (79-100) Mean Corpuscular Hemoglobin 26 pg (25-35) Mean Corpuscular Hemoglobin Concent 33 g/dL (31-37) Red Cell Distribution Width 16.0 % (11.5-14.5) H Platelet Count 342 x10^3/uL (140-400) Neutrophils (%) (Auto) 44 % (31-73) Lymphocytes (%) (Auto) 47 % (24-48) Monocytes (%) (Auto) 6 % (0-9) Eosinophils (%) (Auto) 2 % (0-3) Basophils (%) (Auto) 1 % (0-3) Neutrophils # (Auto) 2.9 x10^3uL (1.8-7.7) Lymphocytes # (Auto) 3.1 x10^3/uL (1.0-4.8) Monocytes # (Auto) 0.4 x10^3/uL (0.0-1.1) Eosinophils # (Auto) 0.1 x10^3/uL (0.0-0.7) Basophils # (Auto) 0.0 x10^3/uL (0.0-0.2) Sodium Level 137 mmol/L (136-145) Potassium Level 4.1 mmol/L (3.5-5.1) Chloride Level 101 mmol/L (98-107) Carbon Dioxide Level 27 mmol/L (21-32) Anion Gap 9 (6-14) Blood Urea Nitrogen 10 mg/dL (7-20) Creatinine 1.0 mg/dL (0.6-1.0) Estimated GFR (Cockcroft-Gault) 71.9 BUN/Creatinine Ratio 10 (6-20) Glucose Level 84 mg/dL (70-99) Calcium Level 9.2 mg/dL (8.5-10.1) Total Bilirubin 0.2 mg/dL (0.2-1.0) Aspartate Amino Transferase (AST) 16 U/L (15-37) Alanine Aminotransferase (ALT) 17 U/L (14-59) Alkaline Phosphatase 75 U/L (46-116) Total Protein 8.2 g/dL (6.4-8.2) Albumin 3.2 g/dL (3.4-5.0) L Albumin/Globulin Ratio 0.6 (1.0-1.7) L Lipase 86 U/L (73-393) Ethyl Alcohol Level < 10 mg/dL (0-10) Laboratory Tests 10/04/18 16:23 Laboratory Tests 10/04/18 16:23 EKG EKG [] Radiology/Procedures Radiology/Procedures []PROCEDURE: CT ABDOMEN PELVIS WO CONTRAST PQRS Compliance statement: One or more of the following individualized dose reduction techniques were utilized for this examination: 1. Automated exposure control. 2. Adjustment of the mA and/or kV according to patient size. 3. Use of iterative reconstruction technique. Indication:left flank pain TECHNIQUE: CT abdomen and pelvis without IV contrast with multiplanar reformats. COMPARISON: 12/09/2017 FINDINGS: Limited evaluation of solid abdominal and pelvic organs due to lack of IV contrast. Heart is normal in size. No pericardial or pleural effusion. Left infrahilar calcified lymph node noted. Clear lung bases. Noncontrast appearance of the liver, spleen, gallbladder, pancreas, adrenals within normal limits. No nephrolithiasis or hydronephrosis. No enlarged retroperitoneal or pelvic adenopathy. Mild diffuse atherosclerotic disease of the abdominal aorta. No free pelvic fluid or ascites. No bowel obstruction. Mild descending colon diverticulosis. Normal appendix. Anteverted uterus. Urinary bladder is within normal limits. No pneumoperitoneum. No suspicious bony lesion. IMPRESSION: Limited evaluation of solid abdominal and pelvic organs due to lack of IV contrast. 1. No nephrolithiasis or hydronephrosis. 2. No bowel obstruction. Normal appendix. Electronically signed by: Lopez Mckeon DO (10/04/2018 5:38 PM) [facility] DICTATED and SIGNED BY: LOPEZ MCKEON DO DATE: 10/04/18 1734 Course & Med Decision Making Course & Med Decision Making Pertinent Labs and Imaging studies reviewed. (See chart for details) This is a 48-year-old female patient presenting to the ED today complaining of left flank pain of chronic sciatica pain. No symptoms since yesterday. Off note K tracs shows patient has received multiple oxycodone tablets for multiple providers including 1 04/10/1912 tablets 09/24/2018 90 tablets 09/19/2019 14 tablets 07/20/2018 90 tablets and many more . UA negtive. CBC with a normal WBC, CMP with no acute findings. CT of the abdomen and pelvic is negative for any acute findings. Patient was given information about her K Tracs report. She started stating some of the oxycodone was stollen. Informed her she will not get any narcotics from [facility] for chronic pain. Offered her diclofenac and cyclobenzaprine as well as Medrol Dosepak. F/u with her PCP Faviola Disclaimer Faviola Disclaimer This electronic medical record was generated, in whole or in part, using a voice recognition dictation system. Departure Departure Impression: Primary Impression: Left flank pain Additional Impressions: Narcotic dependence Sciatica of left side Disposition: HOME, SELF-CARE Condition: STABLE Referrals: UNKNOWN PCP NAME (PCP) Follow-up with the primary care doctor in 1-2 weeks Patient Instructions: Flank Pain, [id number], Sciatica Additional Instructions: You were evaluated in the emergency room for flank pain, chronic sciatic pain. Please follow-up with your own doctor in 1-2 weeks. Take the prescribed medications as ordered. Scripts Methylprednisolone (MEDROL) 4 Mg Tab.ds.pk 1 PKG PO UD, #1 PKG Prov: LUDA PADGETT TRAINING SPECIALIST 10/04/18 Cyclobenzaprine Hcl (CYCLOBENZAPRINE HCL) 10 Mg Tablet 1 TAB PO TID, #30 TAB Prov: LUDA PADGETT TRAINING SPECIALIST 10/04/18 Diclofenac Potassium (DICLOFENAC POTASSIUM) 50 Mg Tablet 1 TAB PO PRN TID, #30 TAB Prov: LUDA PADGETT TRAINING SPECIALIST 10/04/18 Problem Qualifiers LUDA PADGETT TRAINING SPECIALIST Oct 04, 2018 16:55
[2018-10-04 16:59] LABS: BARBITURATES NEG (NEG); BENZODIAZEPINES NEG (NEG); CANNABINOIDS NEG (NEG); COCAINE NEG (NEG); METHADONE NEG (NEG); OPIATES POS (NEG); PHENCYCLIDINE NEG (NEG)
[2018-10-04 17:00] LABS: AMPHETAMINE/METHAMPHETAMINE NEG (NEG)
[2018-10-04 17:01] LABS: CALCIUM 9.2 mg/dL (8.5-10.1); GFR 71.9; POTASSIUM 4.1 mmol/L (3.5-5.1)
[2018-10-04 17:11] LABS: ALBUMIN 3.2 g/dL (3.4-5.0); ALBUMIN/GLOBULIN RATIO 0.6 (1.0-1.7); TOTAL BILIRUBIN 0.2 mg/dL (0.2-1.0); TOTAL PROTEIN 8.2 g/dL (6.4-8.2)
--- NOTE | 2018-10-04 17:42 | RAD ---
PQRS Compliance statement: One or more of the following individualized dose reduction techniques were utilized for this examination: 1. Automated exposure control. 2. Adjustment of the mA and/or kV according to patient size. 3. Use of iterative reconstruction technique. Indication:left flank pain TECHNIQUE: CT abdomen and pelvis without IV contrast with multiplanar reformats. COMPARISON: 12/09/2017 FINDINGS: Limited evaluation of solid abdominal and pelvic organs due to lack of IV contrast. Heart is normal in size. No pericardial or pleural effusion. Left infrahilar calcified lymph node noted. Clear lung bases. Noncontrast appearance of the liver, spleen, gallbladder, pancreas, adrenals within normal limits. No nephrolithiasis or hydronephrosis. No enlarged retroperitoneal or pelvic adenopathy. Mild diffuse atherosclerotic disease of the abdominal aorta. No free pelvic fluid or ascites. No bowel obstruction. Mild descending colon diverticulosis. Normal appendix. Anteverted uterus. Urinary bladder is within normal limits. No pneumoperitoneum. No suspicious bony lesion. IMPRESSION: Limited evaluation of solid abdominal and pelvic organs due to lack of IV contrast. 1. No nephrolithiasis or hydronephrosis. 2. No bowel obstruction. Normal appendix. Electronically signed by: Lopez Mathew DO (10/04/2018 5:38 PM) [facility]
[2018-10-04] MEDS ORDERED: CYCL10TA2 PO (17:58)
[2018-10-04] MEDS ORDERED: DICL50TA2 PO (17:58)
[2018-10-04] MEDS ORDERED: METH4TAB2 PO (17:58)
[2018-10-04 18:31] VITALS: BP 192/108
== END 2018-10-04 18:23 | disposition home or self-care (01) ==
LOC: ER 16:03
DX: M54.32 Sciatica, left side (principal); F11.20 Opioid dependence, uncomplicated; I10 Essential (primary) hypertension
CPT/HCPCS: 36415; 74176; 80053; 80307; 81001; 81025; 83690; 85025; 87086; 96374; 99284; G0480; J1885

== ENCOUNTER 2018-10-18 19:09 | Emergency (ER) | payer MEDICAID ==
[~2018-10-18] VITALS: Ht 165.1 cm; Wt 120.2 kg
[~2018-10-18 19:09] MED LIST changes: +DICL50TA2 PO
[2018-10-18 19:56] VITALS: BP 197/110
[2018-10-18] MEDS ORDERED: HYDROcodone/APAP 5/325MG 1 TAB TABLET PO ONE (20:00)
[2018-10-18] MEDS ORDERED: ONDANSETRON ODT 4 MG TAB.RAPDIS. PO ONE (20:00)
--- NOTE | 2018-10-18 20:01 | PHYS DOC ---
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 Patient states is been taking ibuprofen today last dose was at 1800 today. Patient rates her pain 8 out of 10. (TRISHA STALLWORTH RESEARCH STAFF MEMBER) Review of Systems Review of Systems Constitutional: fever or chills [] Eyes: Denies change in visual acuity, redness, or eye pain [] HENT: nasal congestion or sore throat [] Respiratory: cough or denies shortness of breath [] Cardiovascular: No additional information not addressed in HPI [] GI: Denies abdominal pain, nausea, vomiting, bloody stools or diarrhea [] : Denies dysuria or hematuria [] Musculoskeletal: Generalized body aches. Denies back pain or joint pain [] Integument: Denies rash or skin lesions [] Neurologic: Denies headache, focal weakness or sensory changes [] Endocrine: Denies polyuria or polydipsia [] All other systems were reviewed and found to be within normal limits, except as documented in this note. (TRISHA STALLWORTH RESEARCH STAFF MEMBER) Current Medications Current Medications Current Medications Medications (Trade) Dose Ordered Sig/[facility] Start Time Stop Time Status Last Admin Dose Admin Acetaminophen/ Hydrocodone Bitart (Lortab 5/325) 1 tab 1X ONCE 10/18/18 20:00 10/18/18 20:01 DC 10/18/18 20:33 1 TAB Ondansetron HCl (Zofran Odt) 4 mg 1X ONCE 10/18/18 20:00 10/18/18 20:01 DC 10/18/18 20:33 4 MG (NANCI SMITH DO) Allergies Allergies Allergies Coded Allergies Type Severity Reaction Last Updated Verified No Known Drug Allergies 09/14/14 No (NANCI SMITH DO) Physical Exam Physical Exam Constitutional: Well developed, well nourished, no acute distress, non-toxic appearance. [] HENT: Normocephalic, atraumatic, bilateral external ears normal, oropharynx moist, no oral exudates, nose normal. Throat reddened but no exudates or swelling. [] Eyes: PERRLA, EOMI, conjunctiva normal, no discharge. [] Neck: Normal range of motion, no tenderness, supple, no stridor. [] Cardiovascular:Heart rate regular rhythm, no murmur [] Lungs & Thorax: Bilateral breath sounds clear to auscultation [] Abdomen: Bowel sounds normal, soft, no tenderness, no masses, no pulsatile masses. [] Skin: Warm, dry, no erythema, no rash. [] Back: No tenderness, no CVA tenderness. [] Extremities: No tenderness, no cyanosis, no clubbing, ROM intact, no edema. [] Neurologic: Alert and oriented X 3, normal motor function, normal sensory function, no focal deficits noted. [] Psychologic: Affect normal, judgement normal, mood normal. [] (TRISHA STALLWORTH APRN) Current Patient Data Vital Signs Vital Signs Date Time Temp Pulse Resp B/P (MAP) Pulse Ox O2 Delivery O2 Flow Rate FiO2 10/18/18 20:33 16 98 Room Air 10/18/18 19:56 99.5 107 197/110 (139) 99.5 (NANCI SMITH DO) Lab Values Laboratory Tests Test 10/18/18 19:55 Influenza Type A Antigen Negative (NEGATIVE) Influenza Type B Antigen Negative (NEGATIVE) (NANCI SMITH DO) Lab Values Laboratory Tests Test 10/18/18 19:55 Influenza Type A Antigen Negative (NEGATIVE) Influenza Type B Antigen Negative (NEGATIVE) (TRISHA STALLWORTH APRN) EKG EKG [] (TRISHA STALLWORTH APRN) Radiology/Procedures Radiology/Procedures [] (TRISHA STALLWORTH APRN) Course & Med Decision Making Course & Med Decision Making Patient is a 48 year old female who presents with coughing that makes her vomit , fever, body aches, sneezing 2-3 days. Patient states is been taking ibuprofen today last dose was at 1800 today. Patient rates her pain 8 out of 10. Lungs are clear to auscultation all lobes. Patient denies any nausea or vomiting other than the vomiting that is caused from the coughing. Heart rate regular without murmur. vital signs within normal limits. Throat is reddened but no exudates or swelling. (TRISHA STALLWORTH RESEARCH STAFF MEMBER) Dragon Disclaimer Dragon Disclaimer This electronic medical record was generated, in whole or in part, using a voice recognition dictation system. (TRISHA STALLWORTH RESEARCH STAFF MEMBER) Departure Departure Impression: Primary Impression: Upper respiratory infection Disposition: HOME, SELF-CARE Condition: STABLE Referrals: TYLER HENLEY LUMPIA WRAPPER MAKER (PCP) Patient Instructions: Upper Respiratory Infection, Adult Additional Instructions: Follow-up her primary care provider soon as possible. Take medications as prescribed. Scripts Ibuprofen (IBUPROFEN) 600 Mg Tablet 600 MG PO PRN Q6HRS PRN for INFLAMMATION, #20 TAB Prov: TRISHA STALLWORTH RESEARCH STAFF MEMBER 10/18/18 Azithromycin (AZITHROMYCIN TABLET) 250 Mg Tablet 1 PKG PO UD, #6 TAB Prov: TRISHA STALLWORTH RESEARCH STAFF MEMBER 10/18/18 Methylprednisolone (MEDROL) 4 Mg Tab.ds.pk 1 PKG PO UD, #1 PKG Prov: TRISHA STALLWORTH RESEARCH STAFF MEMBER 10/18/18 Attending Signature Attending Signature I have reviewed the PA/LUMPIA WRAPPER MAKER's note and plan of care. I was available for consultation as needed during the patient's visit in the emergency department. I agree with the clinical impression, plan, and disposition. (NANCI SMITH DO) Problem Qualifiers Primary Impression: Upper respiratory infection URI type: unspecified URI Qualified Codes: J06.9 - Acute upper respiratory infection, unspecified ROBBIN STALLWORTHZack Corral APRN Oct 18, 2018 20:01 NANCI SMITH DO Oct 18, 2018 22:30
[2018-10-18 20:19] LABS: INFLUENZA A PATIENT NEGATIVE (NEGATIVE); INFLUENZA B PATIENT NEGATIVE (NEGATIVE)
[2018-10-18] MEDS ORDERED: GUAI118L20 PO (20:25)
[2018-10-18] MEDS ORDERED: METH4TAB2 PO (20:25)
[2018-10-18] MEDS ORDERED: HYDR-3164 PO (20:25)
[2018-10-18] MEDS ORDERED: AZIT250T6 PO (20:25)
[2018-10-18] MEDS ORDERED: IBUP-1007 PO (20:25)
== END 2018-10-18 20:39 | disposition home or self-care (01) ==
LOC: ER 19:09
DX: J06.9 Acute upper respiratory infection, unspecified (principal); I10 Essential (primary) hypertension
CPT/HCPCS: 87804; 99283; Q0162

== ENCOUNTER 2019-01-03 20:40 | Emergency (ER) | payer OTHER ==
[~2019-01-03] VITALS: Ht 165.1 cm; Wt 114.8 kg
[~2019-01-03 20:40] MED LIST changes: +AZIT250T6 PO; +GUAI118L20 PO; +IBUP-1007 PO
[2019-01-03 22:20] LABS: BILIRUBIN,URINE NEGATIVE (NEG); CLARITY,URINE CLEAR; COLOR,URINE YELLOW; NITRITE,URINE NEGATIVE (NEG); PH,URINE 5.5; PROTEIN,URINE NEGATIVE (NEG-TRACE); UROBILINOGEN,URINE 0.2 mg/dL (0.2 mg/dL)
[2019-01-03 22:26] LABS: SQUAMOUS EPITHELIAL CELL,UR MANY /LPF
[2019-01-03 22:27] LABS: WBC,URINE 20-40 /HPF (0-4)
[2019-01-03 22:28] LABS: YEAST,URINE PRESENT /HPF
[2019-01-03 22:29] LABS: BACTERIA,URINE FEW /HPF (0-FEW); TRICHOMONAS,URINE PRESENT
[2019-01-03 22:53] LABS: BASO # 0.1 x10^3/uL (0.0-0.2); BASO % 1 % (0-3); EOS # 0.1 x10^3/uL (0.0-0.7); EOS % 2 % (0-3); HEMATOCRIT 39.8 % (36.0-47.0); HEMOGLOBIN 13.2 g/dL (12.0-15.5); LYMPH # 4.3 x10^3/uL (1.0-4.8); LYMPH % 55 % (24-48); MEAN CORPUSCULAR HEMOGLOBIN 26 pg (25-35); MEAN CORPUSCULAR HGB CONC 33 g/dL (31-37); MEAN CORPUSCULAR VOLUME 78 fL (79-100); MONO # 0.4 x10^3/uL (0.0-1.1); MONO % 6 % (0-9); NEUT # 2.9 x10^3uL (1.8-7.7); NEUT % 37 % (31-73); PLATELET COUNT 418 x10^3/uL (140-400); RED BLOOD COUNT 5.11 x10^6/uL (3.50-5.40); RED CELL DISTRIBUTION WIDTH 16.6 % (11.5-14.5); WHITE BLOOD COUNT 7.8 x10^3/uL (4.0-11.0)
[2019-01-03 22:55] LABS: U PREG PATIENT NEGATIVE (NEG)
[2019-01-03 23:00] LABS: CALCIUM 9.3 mg/dL (8.5-10.1); CREATININE 0.9 mg/dL (0.6-1.0); GFR 81.2; POTASSIUM 4.3 mmol/L (3.5-5.1)
[2019-01-03] MEDS ORDERED: IV NORMAL SALINE 1000ML BAG 1,000 ML IV ONE (23:00)
[2019-01-03] MEDS ORDERED: fentaNYL PF VIAL 100 MCG/2 ML VIAL IV ONE (23:00)
[2019-01-03 23:06] LABS: ALBUMIN 3.7 g/dL (3.4-5.0); ALBUMIN/GLOBULIN RATIO 0.8 (1.0-1.7); MAGNESIUM 2.2 mg/dL (1.8-2.4); TOTAL BILIRUBIN 0.1 mg/dL (0.2-1.0); TOTAL PROTEIN 8.2 g/dL (6.4-8.2)
[2019-01-03] MEDS ORDERED: CONTRAST GIVEN. MC PRN (23:45)
[2019-01-03] MEDS ORDERED: MORPHINE SULFATE 4 MG/ML VIAL. IV ONE (23:45)
--- NOTE | 2019-01-03 23:48 | PHYS DOC ---
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 She denies fever, N/V/D, urinary symptoms, or chest pain/applications. Patient states she has had a ongoing cough for the past few days as well reports she is a daily smoker. She denies any shortness of air and denies production with the cough. She denies swelling in her extremities. Review of Systems Review of Systems Constitutional: Denies fever or chills [] Eyes: Denies change in visual acuity, redness, or eye pain [] HENT: Denies nasal congestion or sore throat [] Respiratory: Denies shortness of breath. Reports nonprod. cough Cardiovascular: No additional information not addressed in HPI [] GI: Denies nausea, vomiting, bloody stools or diarrhea. Reports mid abd pain : Denies dysuria or hematuria [] Musculoskeletal: Denies back/neck pain or joint pain [] Integument: Denies rash, swelling or skin lesions [] Neurologic: Denies headache, focal weakness or sensory changes [] Endocrine: Denies polyuria or polydipsia [] All other systems were reviewed and found to be within normal limits, except as documented in this note. Current Medications Current Medications Current Medications Medications (Trade) Dose Ordered Sig/Felipa Start Time Stop Time Status Last Admin Dose Admin Ceftriaxone Sodium (Rocephin) 1 gm 1X ONCE 01/04/19 01:30 01/04/19 01:31 DC 01/04/19 01:27 1 GM Dicyclomine HCl (Bentyl) 20 mg 1X ONCE 01/04/19 01:00 01/04/19 01:01 DC 01/04/19 01:01 20 MG Fentanyl Citrate (Fentanyl 2ml Vial) 50 mcg 1X ONCE 01/03/19 23:00 01/03/19 23:01 DC 01/03/19 22:54 50 MCG Info (CONTRAST GIVEN -- Rx MONITORING) 1 each PRN DAILY PRN 01/03/19 23:45 01/04/19 01:56 DC Iohexol (Omnipaque 300 Mg/ml) 75 ml 1X ONCE 01/04/19 00:00 01/04/19 00:01 DC 01/04/19 00:08 75 ML Morphine Sulfate (Morphine Sulfate) 4 mg 1X ONCE 01/04/19 01:00 01/04/19 01:01 DC 01/04/19 01:02 4 MG Sodium Chloride 1,000 ml @ 1,000 mls/hr 1X ONCE 01/03/19 23:00 01/03/19 23:59 DC 01/03/19 22:53 1,000 MLS/HR Allergies Allergies Allergies Coded Allergies Type Severity Reaction Last Updated Verified No Known Drug Allergies 09/14/14 No Physical Exam Physical Exam Constitutional: Well developed, well nourished, no acute distress, non-toxic appearance. [] HENT: Normocephalic, atraumatic, oropharynx moist, no oral exudates, nose normal. [] Eyes: Pupils equal, conjunctiva normal, no discharge. [] Neck: Normal range of motion, no tenderness, supple, no stridor. [] Cardiovascular: Tachycardic heart rate regular rhythm, no murmur [] Lungs & Thorax: Bilateral breath sounds clear to auscultation- resp. equal/ nonlabored. Speaking in full sentences Abdomen: Bowel sounds normal, soft/obese, tender on palp mid umbilical- no rebound tenderness, no masses, no pulsatile masses. [] Skin: Warm, dry, no erythema, no rash. [] Back: No tenderness, no CVA tenderness. [] Extremities: No tenderness, no cyanosis, no clubbing, ROM intact, no edema. [] Neurologic: Alert and oriented X 3, normal motor function, normal sensory function, no focal deficits noted. [] Psychologic: Affect normal, judgement normal, mood normal. [] Current Patient Data Vital Signs Vital Signs Date Time Temp Pulse Resp B/P (MAP) Pulse Ox O2 Delivery O2 Flow Rate FiO2 01/04/19 01:02 18 96 Room Air 01/04/19 00:40 94 187/114 (138) 01/03/19 21:23 99.7 99.7 Lab Values Laboratory Tests Test 01/03/19 20:45 01/03/19 20:51 01/03/19 22:10 Urine Collection Type Unknown Urine Color Yellow Urine Clarity Clear Urine pH 5.5 Urine Specific [place] 1.020 Urine Protein Negative mg/dL (NEG-TRACE) Urine Glucose (UA) Negative mg/dL (NEG) Urine Ketones (Stick) Negative mg/dL (NEG) Urine Blood Moderate (NEG) Urine Nitrite Negative (NEG) Urine Bilirubin Negative (NEG) Urine Urobilinogen Dipstick 0.2 mg/dL (0.2 mg/dL) Urine Leukocyte Esterase Moderate (NEG) Urine RBC 6-10 /HPF (0-2) Urine WBC 20-40 /HPF (0-4) Urine Squamous Epithelial Cells Many /LPF Urine Bacteria Few /HPF (0-FEW) Urine Mucus Marked /LPF Urine Trichomonas Present Urine Yeast Present /HPF Urine Test Negative (NEG) POC Urine HCG, Qualitative Hcg negative (Negative) White Blood Count 7.8 x10^3/uL (4.0-11.0) Red Blood Count 5.11 x10^6/uL (3.50-5.40) Hemoglobin 13.2 g/dL (12.0-15.5) Hematocrit 39.8 % (36.0-47.0) Mean Corpuscular Volume 78 fL (79-100) L Mean Corpuscular Hemoglobin 26 pg (25-35) Mean Corpuscular Hemoglobin Concent 33 g/dL (31-37) Red Cell Distribution Width 16.6 % (11.5-14.5) H Platelet Count 418 x10^3/uL (140-400) H Neutrophils (%) (Auto) 37 % (31-73) Lymphocytes (%) (Auto) 55 % (24-48) H Monocytes (%) (Auto) 6 % (0-9) Eosinophils (%) (Auto) 2 % (0-3) Basophils (%) (Auto) 1 % (0-3) Neutrophils # (Auto) 2.9 x10^3uL (1.8-7.7) Lymphocytes # (Auto) 4.3 x10^3/uL (1.0-4.8) Monocytes # (Auto) 0.4 x10^3/uL (0.0-1.1) Eosinophils # (Auto) 0.1 x10^3/uL (0.0-0.7) Basophils # (Auto) 0.1 x10^3/uL (0.0-0.2) Sodium Level 137 mmol/L (136-145) Potassium Level 4.3 mmol/L (3.5-5.1) Chloride Level 101 mmol/L (98-107) Carbon Dioxide Level 24 mmol/L (21-32) Anion Gap 12 (6-14) Blood Urea Nitrogen 13 mg/dL (7-20) Creatinine 0.9 mg/dL (0.6-1.0) Estimated GFR (Cockcroft-Gault) 81.2 BUN/Creatinine Ratio 14 (6-20) Glucose Level 92 mg/dL (70-99) Calcium Level 9.3 mg/dL (8.5-10.1) Magnesium Level 2.2 mg/dL (1.8-2.4) Total Bilirubin 0.1 mg/dL (0.2-1.0) L Aspartate Amino Transferase (AST) 16 U/L (15-37) Alanine Aminotransferase (ALT) 23 U/L (14-59) Alkaline Phosphatase 85 U/L (46-116) Troponin I Quantitative < 0.017 ng/mL (0.000-0.055) Total Protein 8.2 g/dL (6.4-8.2) Albumin 3.7 g/dL (3.4-5.0) Albumin/Globulin Ratio 0.8 (1.0-1.7) L Laboratory Tests 01/03/19 22:10 Laboratory Tests 01/03/19 22:10 Microbiology 01/03/19 Urine Culture - Final, Complete 01/03/19 Urine Culture Result 1 (NATHAN) - Final, Complete EKG EKG EKG obtained 01/03/19 at [address] Lucero ST Rate 105 No STEMI Radiology/Procedures Radiology/Procedures PROCEDURE: CT ABD PELV W/ IV CONTRST ONLY CT abdomen and pelvis with contrast PQRS statement: CT scans at this facility use dose reduction including either automated exposure control, iterative reconstructions, and /or weight based radiation dosing via mA and kV modification when appropriate to reduce radiation dose to as low as reasonably achievable. HISTORY: Abdominal pain. TECHNIQUE: Helical CT imaging abdomen and pelvis with 75 mL Omnipaque 300 intravenous contrast. COMPARISON: CT abdomen and pelvis October 04, 2018. Abdomen findings: Calcified granuloma left lower lobe. Subcentimeter hypodensity segment 4 of the liver is stable most likely a small cyst. Kidneys, adrenals, pancreas, spleen and gallbladder are unremarkable. Appendix is negative. No obstruction or inflammation GI tract. Sigmoid diverticulosis. Aortoiliac artery calcified plaque. No abdominal fluid or adenopathy. Lumbar disc disease and facet arthritis. Pelvis findings: 2 cm hypodensity left ovary. Trace dependent pelvic fluid. Right ovary obscured by surrounding bowel loops. Uterus, bladder, rectum and bones are unremarkable. IMPRESSION: 1. No acute process. The appendix is negative. 2. 2 cm hypodensity of the left ovary most likely a dominant follicle or cyst. Electronically signed by: Temitope Rubio MD (01/04/2019 12:53 AM) [facility] DICTATED and SIGNED BY: TEMITOPE RUBIO MD DATE: 01/04/19 0053 Course & Med Decision Making Course & Med Decision Making Pertinent Labs and Imaging studies reviewed. (See chart for details) 2335: Patient's heart rate has improved following IV fluids with heart rate at 92 her BP improved with proper BP cuff applied 168/102 with pt reporting she is due for her nightly BP med. She was provided with additional dose of IV pain med and reports no improvement in pain. Will provide dose of bentyl IM. Will obtain CT abd/pelvis for further eval. Test results were discussed with pt with UA showing infection with moderate blood. EKG with no acute ST elevation/STEMI and troponin <0.017. Pt reports she is starting her menstrual cycle as she has had some intermittent vaginal spotting/bleeding today. Chest xray viewed by Dr. Lucero with no obvious acute findings. Discussed CT abd/pelvis results with pt- no acute findings/appendix NL. She reports pain has improved and she remains nontoxic in appearance. Discussed plans for dose of IV Rocephin for UTI while in the ER and then she would be dc' d with Keflex Rx and Bentyl. Pt to f/u with her PCP for re-eval. Discussed BP 171/104 with HR 89 during d/c discussion- she will take her nightly scheduled BP med. Pt advised on increasing water intake- she reports she drinks soda mainly during the day. Pt is in no distress and is comfortable with home d/c plan as discussed. Education provided on s&s to return to ER for and d/c instructions were discussed. Faviola Disclaimer Faviola Disclaimer This electronic medical record was generated, in whole or in part, using a voice recognition dictation system. Departure Departure Impression: Primary Impression: UTI (urinary tract infection) Additional Impression: Abdominal pain Disposition: 01 HOME, SELF-CARE Condition: STABLE Referrals: TYLER HENLEY GRUBBER (PCP) Patient Instructions: Abdominal Pain, Cough, Adult, Smoking Cessation, Urinary Tract Infection Additional Instructions: Drink plenty of water. Avoid smoking. Keep scheduled appointment with your primary doctor unless symptoms worsen- if that occurs call and have follow-up sooner for re-evaluation. Scripts Cephalexin (KEFLEX) 500 Mg Capsule 1 CAP PO BID, #14 CAP 0 Refills Prov: ASIA VIRGEN APRN 01/04/19 Dicyclomine Hcl (DICYCLOMINE HCL) 10 Mg Capsule 1 CAP PO PRN Q6HRS PRN for PAIN, #12 CAP 0 Refills Prov: ASIA VIRGEN APRN 01/04/19 Problem Qualifiers ASIA VIRGEN APRN Jan 03, 2019 23:48
[2019-01-04] MEDS ORDERED: IOHEXOL 300 MG/ML 100ML VIAL. IV ONE
[2019-01-04 00:40] VITALS: BP 187/114
--- NOTE | 2019-01-04 00:56 | RAD ---
CT abdomen and pelvis with contrast PQRS statement: CT scans at this facility use dose reduction including either automated exposure control, iterative reconstructions, and /or weight based radiation dosing via mA and kV modification when appropriate to reduce radiation dose to as low as reasonably achievable. HISTORY: Abdominal pain. TECHNIQUE: Helical CT imaging abdomen and pelvis with 75 mL Omnipaque 300 intravenous contrast. COMPARISON: CT abdomen and pelvis October 04, 2018. Abdomen findings: Calcified granuloma left lower lobe. Subcentimeter hypodensity segment 4 of the liver is stable most likely a small cyst. Kidneys, adrenals, pancreas, spleen and gallbladder are unremarkable. Appendix is negative. No obstruction or inflammation GI tract. Sigmoid diverticulosis. Aortoiliac artery calcified plaque. No abdominal fluid or adenopathy. Lumbar disc disease and facet arthritis. Pelvis findings: 2 cm hypodensity left ovary. Trace dependent pelvic fluid. Right ovary obscured by surrounding bowel loops. Uterus, bladder, rectum and bones are unremarkable. IMPRESSION: 1. No acute process. The appendix is negative. 2. 2 cm hypodensity of the left ovary most likely a dominant follicle or cyst. Electronically signed by: Ford Rubio MD (01/04/2019 12:53 AM) [facility]
[2019-01-04] MEDS ORDERED: MORPHINE SULFATE 4 MG/ML VIAL. IV ONE (01:00)
[2019-01-04] MEDS ORDERED: DICYCLOMINE 20 MG/2 ML AMPUL. IM ONE (01:00)
[2019-01-04] MEDS ORDERED: CEPH-264 PO (01:21)
[2019-01-04] MEDS ORDERED: DICY10CA3 PO (01:21)
[2019-01-04] MEDS ORDERED: cefTRIAXone IV Push 1 GM VIAL. IVP ONE (01:30)
--- NOTE | 2019-01-04 02:55 | RAD ---
PA and lateral chest x-ray HISTORY: Cough. COMPARISON: Chest x-ray August 29, 2016 FINDINGS: Heart size normal. Mediastinal silhouette is normal. Small calcified granuloma right upper lobe is stable. No pneumothorax, pulmonary opacities or pleural effusions. Thoracic disc osteophytes. IMPRESSION: No acute process. Electronically signed by: Ford Rubio MD (01/04/2019 2:52 AM) [facility]
--- NOTE | 2019-01-04 07:55 | EKG ---
[facility] [address] [place] [address] Test Date: 2019-01-03 Test Time: 23:01:29 Pat Name: SASHA NORRIS Department: Room: Gender: F [employer]: : [id number] Requested By: ASIA VIRGEN Order Number: [id number] Reading MD: Temo Segovia Measurements Intervals [place] Rate: 105 P: 41 MI: 148 QRS: 10 QRSD: 82 T: 24 QT: 332 QTc: 443 Interpretive Statements SINUS TACHYCARDIA Electronically Signed On 01-11-2019 12:56:30 CDT by Temo Segovia
== END 2019-01-04 01:40 | disposition home or self-care (01) ==
LOC: ER 20:40
DX: N39.0 Urinary tract infection, site not specified (principal); I10 Essential (primary) hypertension; Z98.51 Tubal ligation status; F17.200 Nicotine dependence, unspecified, uncomplicated
CPT/HCPCS: 36415; 71046; 74177; 80053; 81001; 81025; 83735; 84484; 85025; 87086; 93005; 96372; 96374; 96375; 96376; 99285; J0500; J0696; J2270; J3010; J7030; Q9967

== ENCOUNTER 2019-03-22 16:13 | Emergency (ER) | payer MEDICAID, OTHER ==
[~2019-03-22] VITALS: Ht 165.1 cm; Wt 116.1 kg
[~2019-03-22 16:13] MED LIST changes: +CEPH-264 PO; +DICY10CA3 PO
[2019-03-22] MEDS ORDERED: NAPROXEN 500 MG TABLET PO STA (16:38)
[2019-03-22] MEDS ORDERED: HYDROcodone/APAP 5/325MG 1 TAB TABLET PO ONE (16:45)
[2019-03-22] MEDS ORDERED: cloNIDine HCL 0.1 MG TABLET PO ONE (16:45)
[2019-03-22] MEDS ORDERED: CYCLOBENZAPRINE 10 MG TABLET. PO ONE (16:45)
--- NOTE | 2019-03-22 17:06 | RAD ---
Bilateral lower extremity venous Doppler ultrasound History: Bilateral leg swelling. Comparison: None. Procedure: Color flow Doppler, Doppler spectral analysis, and 2D images are obtained with and without compression in the area of the common femoral vein, superficial femoral vein - femoral vein junction, main femoral vein (superficial femoral vein) and popliteal vein. Veins of the proximal calf are also imaged. Findings: There is normal color flow, augmentation, and compressibility of all visualized vein segments. No evidence of deep venous thrombus is present. IMPRESSION: No evidence of right or left lower extremity deep venous thrombosis. Electronically signed by: Branden Whitt MD (03/22/2019 5:03 PM) [id number]
--- NOTE | 2019-03-22 17:08 | RAD ---
AP portable chest radiograph 03/22/2019 Clinical History: Lower extremity swelling. History of asthma and COPD. An AP erect portable digital radiograph of the chest was obtained. Comparison study is dated 01/03/2019. The cardiac silhouette is normal in size. The thoracic aorta is tortuous. Atherosclerotic calcification of the thoracic aorta is seen. Small calcified granulomas are seen involving the right lung, unchanged. No acute pulmonary infiltrate is seen. No pleural effusion or pneumothorax is noted. The osseous structures are unchanged. Impression: No acute abnormality is seen. Electronically signed by: Saúl Moreno MD (03/22/2019 5:05 PM) [facility]
--- NOTE | 2019-03-22 17:22 | PHYS DOC ---
Past Medical History Past Medical History: Hypertension, Sciatica Additional Past Medical Histor: SLEEP APNEA, RA IN SPINE AND BILATERAL LOWER E XTREMITIES, Ulcers Past Surgical History: , Tubal ligation, Other Additional Past Surgical Histo: LEFT KNEE SX Alcohol Use: Rarely Drug Use: None Adult General Chief Complaint Chief Complaint: LOWER EXTREMITY SWELLING HPI HPI Patient is a 48 year old female with history of sciatica, hypertension, who presents to the ED today complaining of 10 out of 10 bilateral low back pain radiating to bilateral lower extremities, symptoms for 3 days, denies any known injury. Denies any loss of bowel bladder function. Denies any numbness or tingling to bilateral lower extremities. Also complaining of bilateral lower extremity swelling for 3 days. Patient states she has a history of hypertension, supposed to be in HCTZ and has not taken it for the last 24 hours. Patient denies any chest pain to me, denies any shortness of breath. She states her pain is worse on weight bearing. She has a known history of sciatic pain. Denies any recent hospitalization, denies any use of hormones denies any personal family history of DVTs. Review of Systems Review of Systems Constitutional: Denies fever or chills [] Eyes: Denies change in visual acuity, redness, or eye pain [] HENT: Denies nasal congestion or sore throat [] Respiratory: Denies cough or shortness of breath [] Cardiovascular: No additional information not addressed in HPI [] GI: Denies abdominal pain, nausea, vomiting, bloody stools or diarrhea [] : Denies dysuria or hematuria [] Musculoskeletal: Reports bilateral low back pain radiating to bilateral lower extremity, reports bilateral lower extremity swelling. Integument: Denies rash or skin lesions [] Neurologic: Denies headache, focal weakness or sensory changes [] All other systems were reviewed and found to be within normal limits, except as documented in this note. Current Medications Current Medications Current Medications Medications (Trade) Dose Ordered Sig/Felipa Start Time Stop Time Status Last Admin Dose Admin Acetaminophen/ Hydrocodone Bitart (Lortab 5/325) 2 tab 1X ONCE 03/22/19 16:45 03/22/19 16:46 DC 03/22/19 17:15 2 TAB Clonidine HCl (Catapres) 0.1 mg 1X ONCE 03/22/19 16:45 03/22/19 16:46 DC 03/22/19 17:14 0.1 MG Cyclobenzaprine HCl (Flexeril) 10 mg 1X ONCE 03/22/19 16:45 03/22/19 16:46 DC 03/22/19 17:14 10 MG Info (CONTRAST GIVEN -- Rx MONITORING) 1 each PRN DAILY PRN 03/22/19 19:00 03/24/19 18:59 Iohexol (Omnipaque 350 Mg/ml) 90 ml 1X ONCE 03/22/19 18:45 03/22/19 18:46 DC 03/22/19 19:40 90 ML Ketorolac Tromethamine (Toradol 30mg Vial) 30 mg 1X ONCE 03/22/19 19:45 03/22/19 19:46 DC 03/22/19 19:25 30 MG Methylprednisolone Sodium Succinate (SOLU-Medrol 125MG VIAL) 125 mg 1X ONCE 03/22/19 19:45 03/22/19 19:46 DC 03/22/19 19:25 125 MG Naproxen (Naprosyn) 500 mg 1X STAT 03/22/19 16:38 03/22/19 16:39 DC 03/22/19 17:13 500 MG Allergies Allergies Allergies Coded Allergies Type Severity Reaction Last Updated Verified No Known Drug Allergies 09/14/14 No Physical Exam Physical Exam Constitutional: Well developed, well nourished, no acute distress, non-toxic appearance. [] HENT: Normocephalic, atraumatic, bilateral external ears normal, oropharynx moist, no oral exudates, nose normal. [] Eyes: PERRLA, EOMI, conjunctiva normal, no discharge. [] Neck: Normal range of motion, no tenderness, supple, no stridor. [] Cardiovascular:Heart rate regular rhythm, no murmur [] Lungs & Thorax: Bilateral breath sounds clear to auscultation [] Abdomen: Bowel sounds normal, soft, no tenderness, no masses, no pulsatile masses. [] Skin: Warm, dry, no erythema, no rash. [] Back: No tenderness, no CVA tenderness. [] Extremities: No tenderness, no cyanosis, no clubbing, ROM intact, trace edema noted to bilateral lower extremities Neurologic: Alert and oriented X 3, normal motor function, normal sensory function, no focal deficits noted. [] Psychologic: Affect normal, judgement normal, mood normal. [] Current Patient Data Vital Signs Vital Signs Date Time Temp Pulse Resp B/P (MAP) Pulse Ox O2 Delivery O2 Flow Rate FiO2 03/22/19 19:01 101 152/86 (108) 97 Room Air 03/22/19 17:15 20 03/22/19 16:19 98.3 98.3 Lab Values Laboratory Tests Test 03/22/19 17:00 White Blood Count 8.2 x10^3/uL (4.0-11.0) Red Blood Count 5.07 x10^6/uL (3.50-5.40) Hemoglobin 13.1 g/dL (12.0-15.5) Hematocrit 39.6 % (36.0-47.0) Mean Corpuscular Volume 78 fL (79-100) L Mean Corpuscular Hemoglobin 26 pg (25-35) Mean Corpuscular Hemoglobin Concent 33 g/dL (31-37) Red Cell Distribution Width 16.1 % (11.5-14.5) H Platelet Count 350 x10^3/uL (140-400) Neutrophils (%) (Auto) 55 % (31-73) Lymphocytes (%) (Auto) 34 % (24-48) Monocytes (%) (Auto) 9 % (0-9) Eosinophils (%) (Auto) 1 % (0-3) Basophils (%) (Auto) 1 % (0-3) Neutrophils # (Auto) 4.5 x10^3uL (1.8-7.7) Lymphocytes # (Auto) 2.8 x10^3/uL (1.0-4.8) Monocytes # (Auto) 0.7 x10^3/uL (0.0-1.1) Eosinophils # (Auto) 0.1 x10^3/uL (0.0-0.7) Basophils # (Auto) 0.1 x10^3/uL (0.0-0.2) Prothrombin Time 13.5 SEC (11.7-14.0) Prothrombin Time INR 1.1 (0.8-1.1) PTT 33 SEC (24-38) D-Dimer (Sneha) 1.39 ug/mlFEU (0.00-0.50) H Sodium Level 139 mmol/L (136-145) Potassium Level 3.9 mmol/L (3.5-5.1) Chloride Level 101 mmol/L (98-107) Carbon Dioxide Level 27 mmol/L (21-32) Anion Gap 11 (6-14) Blood Urea Nitrogen 12 mg/dL (7-20) Creatinine 1.0 mg/dL (0.6-1.0) Estimated GFR (Cockcroft-Gault) 71.9 BUN/Creatinine Ratio 12 (6-20) Glucose Level 109 mg/dL (70-99) H Calcium Level 9.9 mg/dL (8.5-10.1) Magnesium Level 2.2 mg/dL (1.8-2.4) Total Bilirubin 0.2 mg/dL (0.2-1.0) Aspartate Amino Transferase (AST) 16 U/L (15-37) Alanine Aminotransferase (ALT) 18 U/L (14-59) Alkaline Phosphatase 98 U/L (46-116) Creatine Kinase 163 U/L (26-192) Creatine Kinase MB (Mass) < 0.5 ng/mL (0.0-3.6) Creatine Kinase MB Relative Index 0.3 % (0-4) Troponin I Quantitative < 0.017 ng/mL (0.000-0.055) PO-Aeh-K-Type Natriuretic Peptide 36 pg/mL (0-124) Total Protein 8.9 g/dL (6.4-8.2) H Albumin 3.7 g/dL (3.4-5.0) Albumin/Globulin Ratio 0.7 (1.0-1.7) L Thyroid Stimulating Hormone (TSH) 0.389 uIU/mL (0.358-3.74) Ethyl Alcohol Level < 10 mg/dL (0-10) Laboratory Tests 03/22/19 17:00 Laboratory Tests 03/22/19 17:00 EKG EKG 16:[address] Lester sinus tachycardia HR 120 no STEMI[] Radiology/Procedures Radiology/Procedures []PROCEDURE: CT ANGIOGRAPHY CHEST Chest CTA History: Tachycardia, elevated d-dimer Technique: After bolus of intravenous contrast, CT imaging was performed of the chest. Multiplanar reconstruction images to include MIP reconstruction images are submitted. Exposure: One or more of the following individualized dose reduction techniques were utilized for this examination: 1. Automated exposure control 2. Adjustment of the mA and/or kV according to patient size 3. Use of iterative reconstruction technique. Comparison: None Findings: [ ] No central pulmonary embolism is identified, limited evaluation of the more distal and smaller branches due to degree of contrast opacification during exam. Thoracic aortic caliber is within normal limits without intraluminal flap. There is no pericardial pleural fluid, pneumothorax, lobar consolidation. Major airways are patent. There are some calcified hilar nodes bilaterally. There is calcified granuloma right upper lobe. There is inferior thoracic spondylosis. Impression: 1. No central pulmonary embolism is identified, limited evaluation of the smaller and more distal branches on this exam. Electronically signed by: North Lozano MD (03/22/2019 8:38 PM) [facility] DICTATED and SIGNED BY: NORTH LOZANO MD DATE: 03/22/192037 PROCEDURE: PORTABLE CHEST 1V AP portable chest radiograph 03/22/2019 Clinical History: Lower extremity swelling. History of asthma and COPD. An AP erect portable digital radiograph of the chest was obtained. Comparison study is dated 01/03/2019. The cardiac silhouette is normal in size. The thoracic aorta is tortuous. Atherosclerotic calcification of the thoracic aorta is seen. Small calcified granulomas are seen involving the right lung, unchanged. No acute pulmonary infiltrate is seen. No pleural effusion or pneumothorax is noted. The osseous structures are unchanged. Impression: No acute abnormality is seen. Electronically signed by: Saúl Moreno MD (03/22/2019 5:05 PM) [facility] DICTATED and SIGNED BY: SAÚL MORENO MD DATE: 03/22/191704 PROCEDURE: VENOUS LOWER EXT BILATERAL Bilateral lower extremity venous Doppler ultrasound History: Bilateral leg swelling. Comparison: None. Procedure: Color flow Doppler, Doppler spectral analysis, and 2D images are obtained with and without compression in the area of the common femoral vein, superficial femoral vein - femoral vein junction, main femoral vein (superficial femoral vein) and popliteal vein. Veins of the proximal calf are also imaged. Findings: There is normal color flow, augmentation, and compressibility of all visualized vein segments. No evidence of deep venous thrombus is present. IMPRESSION: No evidence of right or left lower extremity deep venous thrombosis. Electronically signed by: Nithya Whitt MD (03/22/2019 5:03 PM) [id number] DICTATED and SIGNED BY: NITHYA WHITT MD DATE: 07/01/19 1703 Course & Med Decision Making Course & Med Decision Making Pertinent Labs and Imaging studies reviewed. (See chart for details) This is a 48-year-old female patient presenting to the ED today with multiple complaints including exacerbation of chronic low back pain with sciatica, bilateral lower extremity swelling. No known injury. Blood pressure in arrival to the ED 167/117 with heart rates in the 100s to 120s. Patient states she has not taken her hydrochlorothiazide today. Bilateral venous Dopplers are negative. Chest x-ray is negative. EKG noted for sinus tachycardia with heart rate in the 120s. D-dimer 1.39, CTA chest is negative. CBC, BMP, troponin, no acute findings. Patient declined to give us urine. As patient was in the ED she was given hydrocodone and cyclobenzaprine for her chronic back pain with sciatica. She continued to request more pain medicine. We offered her Toradol and Solu-Medrol. 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 Jacy went to talk to her. She continued to complain. She even informed Jacy she gets methadone from a pain clinic as well as oxycodone. We d/c her to home Encouraged to f/u with PCP and the pain clinic for her chronic pain. Dragon Disclaimer Dragon Disclaimer This electronic medical record was generated, in whole or in part, using a voice recognition dictation system. Departure Departure Impression: Primary Impression: Essential hypertension Additional Impressions: Back pain Tachycardia Lower extremity edema Disposition: HOME, SELF-CARE Condition: STABLE Referrals: TYLER [facility] (PCP) follow up as soon as you can Patient Instructions: Back Pain, Adult, Edema, [id number], Sciatica Additional Instructions: You were evaluated in the emergency room for back pain with sciatica, and lower extremity swelling. Your work up in the emergency room was negative for any acute findings. We highly recommend you follow-up with your primary care doctor as well as the pain clinic. Consider elevating bilateral lower extremities, consider wearing compression stockings. Scripts Diclofenac Potassium (DICLOFENAC POTASSIUM) 50 Mg Tablet 1 TAB PO BID, #12 TAB 0 Refills Prov: MUTUNGA,LUDA CECY 03/22/19 Cyclobenzaprine Hcl (CYCLOBENZAPRINE HCL) 10 Mg Tablet 1 TAB PO TID, #30 TAB Prov: LUDA PADGETT CECY 03/22/19 Problem Qualifiers Additional Impressions: Back pain Back pain location: low back pain Chronicity: chronic Back pain laterality: bilateral Sciatica presence: with sciatica Sciatica laterality: bilateral sciatica Qualified Codes: M54.42 - Lumbago with sciatica, left side; M54.41 - Lumbago with sciatica, right side; G89.29 - Other chronic pain LUDA PADGETT CECY Mar 22, 2019 17:22
[2019-03-22 17:35] LABS: BASO # 0.1 x10^3/uL (0.0-0.2); BASO % 1 % (0-3); EOS # 0.1 x10^3/uL (0.0-0.7); EOS % 1 % (0-3); HEMATOCRIT 39.6 % (36.0-47.0); HEMOGLOBIN 13.1 g/dL (12.0-15.5); LYMPH # 2.8 x10^3/uL (1.0-4.8); LYMPH % 34 % (24-48); MEAN CORPUSCULAR HEMOGLOBIN 26 pg (25-35); MEAN CORPUSCULAR HGB CONC 33 g/dL (31-37); MEAN CORPUSCULAR VOLUME 78 fL (79-100); MONO # 0.7 x10^3/uL (0.0-1.1); MONO % 9 % (0-9); NEUT # 4.5 x10^3uL (1.8-7.7); NEUT % 55 % (31-73); PLATELET COUNT 350 x10^3/uL (140-400); RED BLOOD COUNT 5.07 x10^6/uL (3.50-5.40); RED CELL DISTRIBUTION WIDTH 16.1 % (11.5-14.5); WHITE BLOOD COUNT 8.2 x10^3/uL (4.0-11.0)
[2019-03-22 17:45] LABS: PROTHROMBIN TIME PATIENT 13.5 SEC (11.7-14.0)
[2019-03-22] MEDS ORDERED: IOHEXOL 350 MG/ML 100 ML VIAL. IV ONE (18:45)
[2019-03-22 18:57] LABS: CALCIUM 9.9 mg/dL (8.5-10.1); GFR 71.9; POTASSIUM 3.9 mmol/L (3.5-5.1)
[2019-03-22] MEDS ORDERED: CONTRAST GIVEN. MC PRN (19:00)
[2019-03-22 19:03] LABS: ALBUMIN 3.7 g/dL (3.4-5.0); ALBUMIN/GLOBULIN RATIO 0.7 (1.0-1.7); TOTAL BILIRUBIN 0.2 mg/dL (0.2-1.0); TOTAL PROTEIN 8.9 g/dL (6.4-8.2)
[2019-03-22 19:05] LABS: CREATINE KINASE 163 U/L (26-192)
[2019-03-22] MEDS ORDERED: methylPREDNISolone SOD SUCC PF 125 MG/2 ML VIAL. IV ONE (19:45)
[2019-03-22] MEDS ORDERED: KETOROLAC 30 MG/ML VIAL. IV ONE (19:45)
[2019-03-22 20:17] VITALS: BP 173/81
--- NOTE | 2019-03-22 20:41 | RAD ---
Chest CTA History: Tachycardia, elevated d-dimer Technique: After bolus of intravenous contrast, CT imaging was performed of the chest. Multiplanar reconstruction images to include MIP reconstruction images are submitted. Exposure: One or more of the following individualized dose reduction techniques were utilized for this examination: 1. Automated exposure control 2. Adjustment of the mA and/or kV according to patient size 3. Use of iterative reconstruction technique. Comparison: None Findings: [ ] No central pulmonary embolism is identified, limited evaluation of the more distal and smaller branches due to degree of contrast opacification during exam. Thoracic aortic caliber is within normal limits without intraluminal flap. There is no pericardial pleural fluid, pneumothorax, lobar consolidation. Major airways are patent. There are some calcified hilar nodes bilaterally. There is calcified granuloma right upper lobe. There is inferior thoracic spondylosis. Impression: 1. No central pulmonary embolism is identified, limited evaluation of the smaller and more distal branches on this exam. Electronically signed by: Timothy Fagan MD (03/22/2019 8:38 PM) [facility]
[2019-03-22] MEDS ORDERED: CYCL10TA2 PO (20:54)
[2019-03-22] MEDS ORDERED: DICL50TA2 PO (20:54)
--- NOTE | 2019-03-23 03:56 | EKG ---
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
== END 2019-03-22 21:04 | disposition home or self-care (01) ==
LOC: ER 16:13
DX: M54.41 Lumbago with sciatica, right side (principal); M54.42 Lumbago with sciatica, left side; I10 Essential (primary) hypertension; R00.0 Tachycardia, unspecified; R60.0 Localized edema; Z98.51 Tubal ligation status
CPT/HCPCS: 36415; 71045; 71275; 80053; 82553; 83735; 83880; 84443; 84484; 85025; 85379; 85610; 85730; 93005; 93970; 96374; 96375; 99285; G0480; J1885; J2930; Q9967

== ENCOUNTER 2019-08-08 11:15 | Emergency (ER) | payer MEDICAID ==
[~2019-08-08] VITALS: Ht 165.1 cm; Wt 125.2 kg
[2019-08-08] MEDS ORDERED: HYDROcodone/APAP 5/325MG 1 TAB TABLET PO ONE (12:00)
[2019-08-08] MEDS ORDERED: cloNIDine HCL 0.1 MG TABLET PO ONE (12:00)
[2019-08-08] MEDS ORDERED: TRAM-48 PO (12:22)
[2019-08-08] MEDS ORDERED: PENI500T PO (12:22)
--- NOTE | 2019-08-08 12:22 | PHYS DOC ---
Past Medical History Past Medical History: Arthritis, Hypertension Additional Past Medical Histor: SLEEP APNEA, RA IN SPINE AND BILATERAL LOWER EXTREMITIES, Ulcers Past Surgical History: , Tubal ligation, Other Additional Past Surgical Histo: LEFT KNEE SX Smoking: Cigarettes, Less than 1pk/day Alcohol Use: None Drug Use: None Adult General Chief Complaint Chief Complaint: DENTAL PROBLEM HPI HPI Patient is a 49 year old female patient with history of hypertension, sleep apnea and arthritis who presents with complaint of tooth pain. Patient complaining of left upper jaw and tooth pain for the last 3 days after she had a broken piece of her tooth and since then has had constant sharp pain that getting worse with talking and eating. Patient rated her pain 8 on night and states she took [id number] ibuprofen without improvement of her pain. Patient denies fever and chills, nausea and vomiting, dysphagia. Review of Systems Review of Systems Constitutional: Denies fever or chills [] Eyes: Denies change in visual acuity, redness, or eye pain [] HENT: Reports nasal congestion, sore throat, tooth ache Respiratory: Denies cough or shortness of breath [] Cardiovascular: No additional information not addressed in HPI [] GI: Denies abdominal pain, nausea, vomiting, bloody stools or diarrhea [] : Denies dysuria or hematuria [] Musculoskeletal: Denies back pain or joint pain [] Integument: Denies rash or skin lesions [] Neurologic: Denies headache, focal weakness or sensory changes [] Endocrine: Denies polyuria or polydipsia [] All other systems were reviewed and found to be within normal limits, except as documented in this note. Current Medications Current Medications Current Medications Medications (Trade) Dose Ordered Sig/Felipa Start Time Stop Time Status Last Admin Dose Admin Acetaminophen/ Hydrocodone Bitart (Lortab 5/325) 1 tab 1X ONCE 08/08/19 12:00 08/08/19 12:01 DC 08/08/19 12:05 1 TAB Clonidine HCl (Catapres) 0.2 mg 1X ONCE 08/08/19 12:00 08/08/19 12:01 DC 08/08/19 12:04 0.2 MG Allergies Allergies Allergies Coded Allergies Type Severity Reaction Last Updated Verified No Known Drug Allergies 09/14/14 No Physical Exam Physical Exam Constitutional: Well developed, well nourished, mild distress, non-toxic appearance. [] HENT: Normocephalic, atraumatic, bilateral external ears normal, oropharynx moist, no oral exudates, tooth #15 with tenderness and partial fracture Eyes: PERRLA, EOMI, conjunctiva normal, no discharge. [] Neck: Normal range of motion, no tenderness, supple, no stridor. [] Cardiovascular:Heart rate regular rhythm, no murmur [] Lungs & Thorax: Bilateral breath sounds clear to auscultation [] Neurologic: Alert and oriented X 3, normal motor function, normal sensory function, no focal deficits noted. [] Psychologic: Affect normal, judgement normal, mood normal. [] Current Patient Data Vital Signs Vital Signs Date Time Temp Pulse Resp B/P (MAP) Pulse Ox O2 Delivery O2 Flow Rate FiO2 08/08/19 12:40 185/96 (125) 08/08/19 12:05 18 99 Room Air 08/08/19 12:04 112 08/08/19 11:20 98.3 98.3 EKG EKG [] Radiology/Procedures Radiology/Procedures [] Course & Med Decision Making Course & Med Decision Making Evaluation of patient in ER showed 49-year-old female patient with complaining of broken tooth and pain for 2 days. Patient had blood pressure of 202/124 she took her blood pressure medication today. Patient treated with [place] and clonidine 0.2 mg with improvement of blood pressure and her pain. Patient was advised to follow-up with her dentist in 5-7 days and stop smoking cigarettes and take her home blood pressure medication. I've spoken with the patient and/or caregivers. I've explained the patient's condition, diagnosis and treatment plan based on information available to me at this time. I've answered the patient's and/or caregivers questions and addressed any concerns. The patient and/or caregivers have a good understanding the patient's diagnosis, condition and treatment plan as can be expected at this point. Vital signs have been stabilized. The patient's condition is stable for discharge from the emergency department. The patient will pursue further outpatient evaluation with her primary care provider or other designated consulting physician as outlined in the discharge instructions. Patient and/or caregivers are agreeable to this plan of care and follow-up instructions have been explained in detail. The patient and/or caregiv ers have received these instructions in written format and expressed understanding of these discharge instructions. The patient and her caregivers are aware that if any significant change in condition or worsening of symptoms should prompt him to immediately return to this of the closest emergency department. If an emergent department is not readily available I would encourage him to call 911. Faviola Disclaimer Bunnyon Disclaimer This electronic medical record was generated, in whole or in part, using a voice recognition dictation system. Departure Departure Impression: Primary Impression: Fractured tooth Additional Impressions: Dentalgia Accelerated hypertension Disposition: HOME, SELF-CARE (at 1220) Condition: IMPROVED Referrals: LESLIE ALVAREZ (PCP) Patient Instructions: Form - Blood Pressure Record Sheet, How to Take Your Blood Pressure, [id number], Managing Your High Blood Pressure, Tooth Fracture, Toothache-Brief Additional Instructions: All of his your dentist in 5-7 days Follow-up with your primary care physician in 3-5 days regarding her blood pressure Return to ER if not getting better Scripts Tramadol Hcl (ULTRAM) 50 Mg Tablet 50 MG PO Q6HRS PRN for PAIN, #14 TAB 0 Refills Prov: SAMUEL CORDOBA MD 08/08/19 Penicillin V Potassium (PENICILLIN V POTASSIUM) 500 Mg Tablet 2 TAB PO Q12HR, #28 TAB Prov: SAMUEL CORDOBA MD 08/08/19 Problem Qualifiers Primary Impression: Fractured tooth Encounter type: initial encounter Fracture type: closed Qualified Codes: S02.5XXA - Fracture of tooth (traumatic), initial encounter for closed fracture SAMUEL CORDOBA MD Aug 08, 2019 12:22
[2019-08-08 12:40] VITALS: BP 185/96
== END 2019-08-08 12:45 | disposition home or self-care (01) ==
LOC: ER 11:15
DX: S02.5XXA Fracture of tooth (traumatic), initial encounter for closed fracture (principal); I10 Essential (primary) hypertension; M19.90 Unspecified osteoarthritis, unspecified site; G47.30 Sleep apnea, unspecified; F17.210 Nicotine dependence, cigarettes, uncomplicated; X58.XXXA Exposure to other specified factors, initial encounter; Y93.89 Activity, other specified; Y92.89 Other specified places as the place of occurrence of the external cause; Y99.8 Other external cause status
CPT/HCPCS: 99283

== ENCOUNTER 2019-12-29 17:11 | Emergency (ER) | payer MEDICAID ==
[~2019-12-29] VITALS: Ht 165.1 cm; Wt 111.3 kg
[~2019-12-29 17:11] MED LIST changes: +PENI500T PO
--- NOTE | 2019-12-29 17:44 | PHYS DOC ---
Past Medical History Past Medical History: Arthritis, Hypertension Additional Past Medical Histor: SLEEP APNEA, RA IN SPINE AND BILATERAL LOWER EXTREMITIES, Ulcers (SAMUEL CORDOBA MD) Past Surgical History: , Tubal ligation, Other Additional Past Surgical Histo: LEFT KNEE SX (SAMUEL CORDOBA MD) Smoking Status: Current Every Day Smoker Alcohol Use: None Drug Use: None (SAMUEL CORDOBA MD) General Adult EDM: Chief Complaint: FLANK PAIN HPI: HPI: Patient is a 49 year old female with history of hypertension, arthritis, sleep apnea, rheumatoid arthritis in the spine and bilateral lower extremity, ulcers who presents with complaining of flank pain. Patient complaining of bilateral flank pain for the last 3 days as a sharp throbbing pain with radiation to suprapubic area and rated her pain 10/10. Patient denies fever and chills, nausea and vomiting, anorexia, diarrhea and constipation, urinary symptoms, change of pain with movement. Patient states she had the same pain 2 weeks ago and seen at [facility] emergency room and treated as outpatient with 2 antibiotics for diverticulitis but her pain returned after she finished a course of 10 days of medication. (SAMUEL CORDOBA MD) Review of Systems: Review of Systems: Constitutional: Denies fever or chills. [] Eyes: Denies change in visual acuity. [] HENT: Denies nasal congestion or sore throat. [] Respiratory: Denies cough or shortness of breath. [] Cardiovascular: Denies chest pain or edema. [] GI: Report abdominal pain, denies nausea, vomiting, bloody stools or diarrhea. [] : Denies dysuria. [] Musculoskeletal: Denies back pain or joint pain. [] Integument: Denies rash. [] Neurologic: Denies headache, focal weakness or sensory changes. [] Endocrine: Denies polyuria or polydipsia. [] Lymphatic: Denies swollen glands. [] Psychiatric: Denies depression or anxiety. [] (SAMUEL CORDOBA MD) Heart Score: Risk Factors: Risk Factors: DM, Current or recent (<one month) smoker, HTN, HLP, family history of CAD, obesity. Risk Scores: Score 0 - 3: 2.5% MACE over next 6 weeks - Discharge Home Score 4 - 6: 20.3% MACE over next 6 weeks - Admit for Clinical Observation Score 7 - 10: 72.7% MACE over next 6 weeks - Early Invasive Strategies (SAMUEL CORDOBA MD) Allergies: Allergies: Allergies Coded Allergies Type Severity Reaction Last Updated Verified No Known Drug Allergies 09/14/14 No (SAMUEL CORDOBA MD) Physical Exam: PE: Constitutional: Well developed, well nourished, mild distress, non-toxic appea maureen. [] HENT: Normocephalic, atraumatic. Eyes: PERRLA, EOMI, conjunctiva normal, no discharge. [] Neck: Normal range of motion, no tenderness, supple, no stridor. [] Cardiovascular:Heart rate regular rhythm, no murmur [] Lungs & Thorax: Bilateral breath sounds clear to auscultation [] Abdomen: Bowel sounds normal, soft, no tenderness, no masses, no pulsatile masses. [] Skin: Warm, dry, no erythema, no rash. [] Back: No mid tenderness, bilateral paraspinal guarding, no CVA tenderness. [] Extremities: No tenderness, no cyanosis, no clubbing, ROM intact, no edema. [] Neurologic: Alert and oriented X 3, no focal deficits noted. [] Psychologic: Affect anxious, judgement normal, mood normal. [] (SAMUEL CORDOBA MD) EKG: EKG: [] (SAMUEL CORDOBA MD) Radiology/Procedures: Radiology/Procedures: [] (SAMUEL CORDOBA MD) Course & Med Decision Making: Course & Med Decision Making Pertinent Labs and Imaging studies are pending. Evaluation of patient in ER showed 49-year-old female patient with complaining o f constant bilateral flank pain for 3 days with history of diverticulitis that was treated as outpatient 2 weeks ago. Patient had guarding of paraspinal muscle with elevation of blood pressure more than 200. Labs and CT of abdomen and pelvis is pending. Sign out given to Dr. Lucero at 1800 for further evaluation and final disposition. Discussed current findings and plan with patie nt and family, who acknowledge understanding and agreement. (SAMUEL CORDOBA MD) Course & Med Decision Making Please keep patient lab and imaging studies reviewed showing. CT and lab reasurnig. Positive for substance abuses of abuse. Suspect musculoskeletal skeletal pain along with drug-seeking behavior. Recommend follow-up with PCP and supportive care. (KEVEN LUCERO DO) Dragon Disclaimer: Dragon Disclaimer: This electronic medical record was generated, in whole or in part, using a voice recognition dictation system. (SAMUEL CORDOBA MD) Departure Departure Impression: Primary Impression: Bilateral flank pain Additional Impressions: Accelerated hypertension Morbid obesity Disposition: HOME, SELF-CARE Condition: STABLE Referrals: LESLIE ALVAREZ (PCP) Patient Instructions: Back Pain, Adult, Hypertension, Substance Abuse-Brief Additional Instructions: Please go home and rest. Follow up with your PCP in 2-3 days for re-evaluation. Take Tylenol or Ibuprofen for pain. SAMUEL CORDOBA MD Dec 29, 2019 17:44 KEVEN LUCERO DO Dec 29, 2019 19:14
[2019-12-29] MEDS ORDERED: KETOROLAC 30 MG/ML VIAL. IVP ONE (17:45)
[2019-12-29 17:46] LABS: BILIRUBIN,URINE NEGATIVE (NEG); CLARITY,URINE CLEAR; COLOR,URINE YELLOW; NITRITE,URINE NEGATIVE (NEG); PH,URINE 5.5 (<5.0-8.0); PROTEIN,URINE NEGATIVE (NEG-TRACE); UROBILINOGEN,URINE 0.2 mg/dL (0.2 mg/dL)
[2019-12-29 17:51] LABS: BARBITURATES NEG (NEG); BENZODIAZEPINES NEG (NEG); CANNABINOIDS NEG (NEG); COCAINE POS (NEG); METHADONE NEG (NEG); OPIATES POS (NEG); PHENCYCLIDINE NEG (NEG)
[2019-12-29 17:52] LABS: AMPHETAMINE/METHAMPHETAMINE NEG (NEG)
[2019-12-29 17:53] LABS: BACTERIA,URINE FEW /HPF (0-FEW); RBC,URINE 0 /HPF (0-2); SQUAMOUS EPITHELIAL CELL,UR MOD /LPF; WBC,URINE OCC /HPF (0-4)
[2019-12-29 18:03] LABS: BASO # 0.1 x10^3/uL (0.0-0.2); BASO % 1 % (0-3); EOS # 0.1 x10^3/uL (0.0-0.7); EOS % 2 % (0-3); HEMATOCRIT 35.6 % (36.0-47.0); HEMOGLOBIN 11.7 g/dL (12.0-15.5); LYMPH # 3.1 x10^3/uL (1.0-4.8); LYMPH % 45 % (24-48); MEAN CORPUSCULAR HEMOGLOBIN 25 pg (25-35); MEAN CORPUSCULAR HGB CONC 33 g/dL (31-37); MEAN CORPUSCULAR VOLUME 77 fL (79-100); MONO # 0.6 x10^3/uL (0.0-1.1); MONO % 9 % (0-9); NEUT # 3.1 x10^3/uL (1.8-7.7); NEUT % 44 % (31-73); PLATELET COUNT 321 x10^3/uL (140-400); RED BLOOD COUNT 4.62 x10^6/uL (3.50-5.40); RED CELL DISTRIBUTION WIDTH 16.5 % (11.5-14.5)
--- NOTE | 2019-12-29 18:03 | RAD ---
PQRS Compliance Statement: One or more of the following individualized dose reduction techniques were utilized for this examination: 1. Automated exposure control 2. Adjustment of the mA and/or kV according to patient size 3. Use of iterative reconstruction technique CT abdomen/pelvis without contrast 12/29/2019 5:43 PM INDICATION: Bilateral flank pain with history of diverticulosis COMPARISON: CT abdomen/pelvis 01/04/2019 TECHNIQUE: Multiple axial CT images of the abdomen and pelvis were obtained without intravenous contrast. Coronal and sagittal reformats are provided. FINDINGS: Lung bases are clear. Heart size within normal limits. Calcified granuloma noted in the medial left lung base. Stable 4 mm simple cyst in the medial segment left hepatic lobe. Evaluation of solid abdominal viscera is limited by lack of intravenous contrast. Liver, spleen, bilateral adrenal glands, pancreas and gallbladder are normal in appearance. Mild to moderate calcified plaque is noted involving the abdominal aorta. There are no pathologically enlarged lymph nodes in abdomen and pelvis. Nonenlarged bilateral inguinal lymph nodes are present. These are likely reactive. The kidneys are relatively symmetric in appearance. There is no suspicious renal mass within the limitations of a noncontrast examination. There is no hydronephrosis. There are no calculi within the kidneys, ureters or urinary bladder. There is high attenuation within the urinary bladder. Correlate with any recent contrast administration. There is moderate colonic diverticulosis. No bowel obstruction or inflammation. Appendix is normal. Uterus and adnexa are normal by CT. Follicular changes are identified in the adnexa bilaterally. No suspicious osseous abnormality is identified. IMPRESSION: No acute abnormalities identified in abdomen and pelvis. Likely, no evidence for obstructive uropathy. Diverticulosis without adjacent inflammatory changes to suggest a diverticulitis. Electronically signed by: Oly Vargas MD (12/29/2019 6:00 PM) [facility]
[2019-12-29 18:11] LABS: PROTHROMBIN TIME PATIENT 13.7 SEC (11.7-14.0)
[2019-12-29 18:14] LABS: CALCIUM 8.6 mg/dL (8.5-10.1); CREATININE 0.8 mg/dL (0.6-1.0); GFR 92.6
[2019-12-29 18:20] LABS: ALBUMIN 3.2 g/dL (3.4-5.0); ALBUMIN/GLOBULIN RATIO 0.9 (1.0-1.7); TOTAL BILIRUBIN 0.2 mg/dL (0.2-1.0); TOTAL PROTEIN 6.7 g/dL (6.4-8.2)
[2019-12-29 19:32] VITALS: BP 180/99
== END 2019-12-29 19:40 | disposition home or self-care (01) ==
LOC: ER 17:11
DX: R10.31 Right lower quadrant pain (principal); R10.32 Left lower quadrant pain; G47.30 Sleep apnea, unspecified; I10 Essential (primary) hypertension; E66.01 Morbid (severe) obesity due to excess calories; M19.90 Unspecified osteoarthritis, unspecified site; F17.200 Nicotine dependence, unspecified, uncomplicated; Z98.51 Tubal ligation status; Z68.41 Body mass index [BMI] 40.0-44.9, adult; Z98.890 Other specified postprocedural states
CPT/HCPCS: 36415; 74176; 80053; 80307; 81001; 83690; 85025; 85610; 96374; 99284; J1885